=== PATIENT | female | born 1945 | race Caucasian/White ===

== ENCOUNTER 2023-08-31 08:45 | Outpatient (CLI) | payer MEDICARE, SELFPAY ==
[2023-08-31 15:01] LABS: Alanine Aminotransferase 20 U/L (6-35); Albumin Level 4.1 g/dL (3.5-5.1); Alkaline Phosphatase 59 U/L (38-126); Anion Gap 4 mmol/L (4-12); Aspartate Amino Transferase 45 U/L (14-36); Bilirubin,Total 0.6 mg/dL (0.2-1.3); Blood Urea Nitrogen 24 mg/dL (7-17); Calcium 9.6 mg/dL (8.4-10.2); Carbon Dioxide 30 mmol/L (22-30); Chloride 105 mmol/L (98-107); Cholesterol 165 mg/dL (0-200); Estimated Glomerular Filt Rate 54; Glucose 93 mg/dL (65-110); HDL Direct 51 mg/dL; Potassium 3.9 mmol/L (3.4-5.0); Sodium 139 mmol/L (137-145); Triglycerides 150 mg/dL (<150)
[2023-08-31 15:12] LABS: LDL Cholesterol Direct 86 mg/dL
== END 2023-08-31 08:46 | disposition home or self-care (01) ==
PROVIDERS: PCP Emergency Medicine; Visit Provider Emergency Medicine
DX: E78.5 Hyperlipidemia, unspecified (principal)
CPT/HCPCS: 36415; 80053; 80061

== ENCOUNTER 2024-02-14 11:45 | Outpatient (CLI) | payer MEDICARE, SELFPAY ==
--- NOTE | ~2024-02-14 | MM_ITS ---
EXAMINATION: MM screening sahara BI w oli HISTORY: Screening TECHNIQUE: Craniocaudal and mediolateral oblique 3-D tomosynthesis images were obtained and synthetic 2-D images were generated. CAD analysis was submitted and interpreted. COMPARISON: No prior mammogram is available for comparison at this institution. BREAST PARENCHYMAL COMPOSITION: Not dense: There are scattered areas of fibroglandular density. FINDINGS: There are asymmetries in the central aspect of the right breast on MLO view. There is no ma mmographic evidence for malignancy in the left breast. IMPRESSION: 1. Right breast asymmetries. 2. Additional mammographic views and possible breast ultrasound are recommended. BI-RADS Category 0: Incomplete: Needs additional imaging evaluation. Reviewed, dictated and finalized at location B. AIGN MANAGEMENT SENIOR MANAGER IMPRESSION: 1. Right breast asymmetries. 2. Additional mammographic views and possible breast ultrasound are recommended . BI-RADS Category 0: Incomplete: Needs additional imaging evaluation.
== END 2024-02-14 11:46 | disposition home or self-care (01) ==
PROVIDERS: PCP Family Medicine; Visit Provider Family Medicine
DX: Z12.31 Encounter for screening mammogram for malignant neoplasm of breast (principal); R92.8 Other abnormal and inconclusive findings on diagnostic imaging of breast
CPT/HCPCS: 77063; 77067

== ENCOUNTER 2024-03-09 08:23 | Emergency (ER) | payer MEDICARE, SELFPAY ==
[2024-03-09 09:05] VITALS: BP 142/80; PULSE 89; RESP 16; TEMP 36.6; O2SAT 98
[2024-03-09 09:21] LABS: EDCOVIDSCREEN Negative (Negative); EDINFLUASCREEN Negative (Negative); EDINFLUBSCREEN Negative (Negative)
--- NOTE | 2024-03-09 09:22 | ED.URI ---
HPI - URI/Sore Throat General Chief Complaint: Upper Respiratory Infection Stated Complaint: breathing prob, maeve, asthma Time Seen by Provider: 03/09/24 09:16 Source: patient and RN notes reviewed Mode of arrival: ambulatory Limitations: no limitations History of Present Illness HPI Narrative: Patient presents today with a 4 day history of chest congestion, cough, shortness of breath, left ear pain. History of asthma for which she uses control medication and rescue inhaler. She has also been using cough drops without relief. History of Meniere's disease and recent diagnosis of dystonia Related Data Home Medications ?Medication ?Instructions ?Recorded ?Confirmed ?Last Taken ?Type albuterol sulfate 2 mg/5 mL oral 2 mg PO TID 08/30/23 08/30/23 Unknown History syrup calcium carbonate (Alcalak) 168 mg PO TID 08/30/23 03/09/24 Unknown History fluticasone propionate 50 1 spray intranasal DAILY 08/30/23 03/09/24 Unknown History mcg/actuation nasal spray,suspension (Flonase Allergy Relief) omeprazole 20 mg capsule,delayed 20 mg PO DAILY 08/30/23 03/09/24 Unknown History release Allergies Allergy/AdvReac Type Severity Reaction Status Date / Time Penicillins Allergy Mild Rash Verified 03/09/24 11:48 Review of Systems Review of Systems: CONSTITUTIONAL: Denies body aches, fever, chills, or sweats. EYES: Denies visual changes, redness, or discharge. ENT: Denies rhinorrhea, congestion, sore throat.+ left ear pain CARDIOVASCULAR: Denies chest pain, palpitations, or edema. RESPIRATORY: + cough, shortness of breath, chest congestion GASTROINTESTINAL: Denies abdominal pain, nausea, vomiting, or diarrhea. GENITOURINARY: Denies dysuria or hematuria. SKIN: Denies rash, itching, or wounds. MUSCULOSKELETAL: Denies back pain, joint pain, or myalgia. NEUROLOGIC: Denies headache, numbness, tingling, or weakness. PSYCH: Denies depression or anxiety. [facility], LAT[facility] Past Medical History Medical History (Updated 03/09/24 @ 14:24 by Luc Muñoz PA-C) Asthma Family History Family History Mother Diabetes mellitus Father Heart disease Social History Social History Smoking status: Never smoker Alcohol intake: never Substance use: never Substance use type: does not use Lack of Transportation: No Current Housing: I Have Housing Concerned About Future Housing: No Difficulty Paying Gas/Electric Bills: No Difficulty Paying for Meds: No Currently Unemployed: No Education: Master's Degree or Higher Difficulty w/ Childcare or Family Care: No Living arrangements: with family Occupation/Education: other Gender identity (if verbalized by the patient): Female Sexual Orientation (if Verbalized by the Patient): Straight or Heterosexual Comments At time of signature, I have reviewed and agree with nursing past medical, surgical, social and family history unless otherwise noted. Please see nursing chart for further information. There is no relevant family history pertinent to the presenting complaint Exam Narrative: GENERAL: Mildly ill-appearing, well-nourished, and in no acute distress. HEAD: Normocephalic, atraumatic. EYES: EOMI. No redness or drainage. Conjunctivae normal. ENT: Mucous membranes pink and moist. Nares clear. No rhinorrhea. TMs normal bilaterally. Throat normal. Uvula midline. NECK: Normal AROM. Supple. No lymphadenopathy. CHEST: No respiratory distress. Clear to auscultation. Exhalation elicits severe coughing episodes. HEART: Regular rate and rhythm. No murmur appreciated. EXTREMITIES: Normal range of motion. No edema. SKIN: Warm, dry, no rash. Capillary refill normal. Normal skin turgor. NEURO: No focal deficits. Alert and oriented x3. Gait steady. PSYCH: Normal affect. No signs of depression or anxiety. Course Course Emergency Course: 944-Patient received Duoneb. In the middle of the treatment, patient was found by nurse having some tremors of the head and upper body and I was called to the bedside. Patient states that symptoms such as this may happen when her Meniere's disease is exacerbated. She requested 2 of her meclizine tablets from her purse and she laid down on the exam table to rest. When checked on approx 10 mins later, patient states she was feeling a bit better and her shortness of breath had improved. was called to picker feeder as patient declined to be transferred to the ED at this time. 1040- called into room by Patient is once again short of breath and having increased tremors. Patient states, ?I do not feel right. ? Patient is then placed on a monitor and oxygen via mask as she is primarily breathing out of her mouth. Instructed patient to slow down her breathing as she was hyperventilating. EMS was called and patient will be transferred to the ER for further evaluation and treatment. Vital signs have been stable during patient's visit Level of Care: Express Care Visit Vital Signs Vital signs: Vital Signs Temperature 98 F 03/09/24 09:05 Pulse Rate 89 03/09/24 09:05 Respiratory Rate 16 03/09/24 09:05 Blood Pressure 142/80 H 03/09/24 09:05 Pulse Oximetry 98 03/09/24 09:05 Temperature 98 F 03/09/24 09:05 Pulse Rate 89 03/09/24 10:34 Respiratory Rate 22 H 03/09/24 10:34 Blood Pressure 168/91 H 03/09/24 10:34 Pulse Oximetry 100 03/09/24 10:34 Reviewed Transfer Transfered to: [place] Transportation: ALS Transfer rationale: Body tremors, shortness of breath Accepting physician: Pb MDM - URI/Sore Throat MDM Narrative Medical decision making narrative: Patient's condition has worsened from arrival to now include full body tremors and increased shortness of breath. Her shortness of breath had improved initially after the DuoNeb, but now has worsened. Initially, in preparation for discharge, rx for prednisone was sent to pharmacy for her cough/asthma exacerbation. Differential Diagnosis Differential diagnosis: Likely upper respiratory infection, sinusitis, viral infection, bronchitis and other (Asthma exacerbation, pneumonia) Lab Data Attestation: I reviewed the patient's lab results. Labs: Lab Results 03/09/24 Range/Units 09:00 POC Influenza A Ag Negative (Negative) POC Influenza B Ag Negative (Negative) POC SARS CoV-2 Ag Negative (Negative) Critical Care Time Critical Care Time Critical Care Time: No Discharge Plan Discharge Clinical Impression: Shortness of breath, Tremor Patient Disposition: Acute Care Hospital Condition: Stable Patient Language: Moroccan Prescriptions: New prednisone 20 mg tablet 40 mg PO DAILY 5 Days Qty: 10 0RF No Action omeprazole 20 mg capsule,delayed release(DR/EC) 20 mg PO DAILY Alcalak 168 mg calcium (420 mg) tablet,chewable 168 mg PO TID fluticasone propionate [Flonase Allergy Relief] 50 mcg/actuation spray,suspension 1 spray intranasal DAILY Rx Instructions: administer into each nostril albuterol sulfate 2 mg/5 mL syrup 2 mg PO TID albuterol sulfate [Ventolin HFA] 90 mcg/actuation HFA aerosol inhaler 1 puff inhalation Q4H PRN (Reason: shortness of breath or wheezing) Qty: 8.5 1RF montelukast 10 mg tablet 10 mg PO DAILY Qty: 90 1RF rosuvastatin 20 mg tablet 20 mg PO DAILY Qty: 90 1RF budesonide-formoterol [Breyna] 160-4.5 mcg/actuation HFA aerosol inhaler 2 inh inhalation BID Qty: 10.2 3RF Follow-up/Referrals: Mojgan Prather DO [Primary Care Provider] - Time of Disposition: 10:43
[2024-03-09] MEDS: IPRATROPIUM BR 0.02% INH SOLN 0.5 MG/2.5 ML VIAL INHALATION (09:33)
[2024-03-09] MEDS: ALBUTEROL SULFATE NEB 2.5 MG/3 ML INH INHALATION (09:33)
[2024-03-09 09:54] VITALS: BP 165/99; PULSE 94; RESP 22; O2SAT 99
[2024-03-09 10:34] VITALS: BP 168/91; PULSE 89; RESP 22; O2SAT 100
--- NOTE | 2024-03-09 10:59 | PC.NURSE ---
1000 patient was taking breathing treatment as ordered but sitting in chair with shaking movement and holding nebulizer in hand. Patient is awake and alert to verbal stimuli; reports she feels lightheaded and some difficulty breathing.
--- NOTE | 2024-03-09 19:19 | PC.NURSE ---
0924 Patient was taking breathing treatment as ordered while sitting in chair; noted to be shaking and holding nebulizer in hand; patient responds appropriately to verbal stimuli. Patient states she was shaking and related to her meinere's; patient wanted to take her meclizine that she had in purse. Provider at bedside and meclizine taken under provider's guidance.
--- NOTE | 2024-03-09 19:22 | PC.NURSE ---
1000 bp 147/80 HR 80 with SpO2 @ 100%. Patient assisted to supine position on exam table. Remains alert and less shaking while talking with staff.
--- NOTE | 2024-03-09 19:23 | PC.NURSE ---
1015 checked on patient-she remains in supine position but increase in shaking and patient reports difficulty in breathing. Respirations 22/minute, SpO2 100% on room air with BP 160/102. Provider called to bedside.
--- NOTE | 2024-03-09 19:25 | PC.NURSE ---
1017 granite setter applied with NSR. EMS called.
--- NOTE | 2024-03-09 19:25 | PC.NURSE ---
1025 NSR by mysql dba; O2 applied 15L via NRB-patient is awake, continued shaking.
== END 2024-03-09 10:40 | disposition short-term general hospital (02) ==
PROVIDERS: Emergency Provider Nurse Practitioner; PCP Family Medicine
DX: R06.02 Shortness of breath (principal); R25.1 Tremor, unspecified; Z20.822 Contact with and (suspected) exposure to COVID-19; J45.909 Unspecified asthma, uncomplicated
CPT/HCPCS: 87426; 87804; 94640; 99215; G0463

== ENCOUNTER 2024-03-09 11:02 | Emergency (ER) | payer MEDICARE, SELFPAY ==
[2024-03-09 11:45] VITALS: BP 140/107; PULSE 91; RESP 20; TEMP 36.8; O2SAT 98
--- NOTE | 2024-03-09 13:52 | PC.NURSE ---
Patient denies any symptoms at this time. patient states she felt jumpy and had tremors after getting an albuterol treatment, but symptoms have since resolved
[2024-03-09 13:53] VITALS: RESP 18; O2SAT 100
[2024-03-09 13:54] VITALS: BP 122/57; PULSE 83; RESP 18; O2SAT 100
--- NOTE | 2024-03-09 14:17 | ED_ITS ---
HPI - General Adult General Chief complaint: Unspecified Stated complaint: dyspnea Time Seen by Provider: 03/09/24 14:01 Source: patient Mode of arrival: ambulatory Limitations: no limitations History of Present Illness HPI narrative: This is a 78 yo F with PMHx of dystonia, asthma who presents from urgent care after having dystonic reaction. She was given albuterol breathing treatment at the urgent care today for asthma exacerbation, and was referred over due to dystonic reaction ongoing for greater than 30 minutes. Patient states that she feels better on arrival to our ED after she was given 2 doses of Benadryl via EMS. She states that the albuterol helped with her breathing and wheezing as well. She has no current complaints and would like to be discharged home. Related Data Home Medications ?Medication ?Instructions ?Recorded ?Confirmed ?Last Taken ?Type albuterol sulfate 2 mg/5 mL oral 2 mg PO TID 08/30/23 08/30/23 Unknown History syrup calcium carbonate (Alcalak) 168 mg PO TID 08/30/23 03/09/24 Unknown History fluticasone propionate 50 1 spray intranasal DAILY 08/30/23 03/09/24 Unknown History mcg/actuation nasal spray,suspension (Flonase Allergy Relief) omeprazole 20 mg capsule,delayed 20 mg PO DAILY 08/30/23 03/09/24 Unknown History release Allergies Allergy/AdvReac Type Severity Reaction Status Date / Time Penicillins Allergy Mild Rash Verified 03/09/24 11:48 Review of Systems Review of Systems: All systems as dictated in [facility] Past Medical History Medical History (Updated 03/09/24 @ 14:24 by Luc Muñoz PA-C) Asthma Family History Family History Mother Diabetes mellitus Father Heart disease Social History Social History Smoking status: Never smoker Alcohol intake: never Substance use: never Substance use type: does not use Lack of Transportation: No Current Housing: I Have Housing Concerned About Future Housing: No Difficulty Paying Gas/Electric Bills: No Difficulty Paying for Meds: No Currently Unemployed: No Education: Master's Degree or Higher Difficulty w/ Childcare or Family Care: No Living arrangements: with family Occupation/Education: other Gender identity (if verbalized by the patient): Female Sexual Orientation (if Verbalized by the Patient): Straight or Heterosexual Exam Narrative: GENERAL: Well-appearing, well-nourished, and in no acute distress. HEAD: Normocephalic, atraumatic. EYES: PERRLA and EOMI. ENT: Nares clear, no rhinorrhea or epistaxis. Mucous membranes moist. Oropharynx without tonsillar hypertrophy exudate or other lesions. NECK: Supple. No adenopathy or masses. CHEST: No respiratory distress. Clear to auscultation. No wheezes rales or rhonchi HEART: Regular rate and rhythm. No murmur heard. Normal peripheral pulses. ABDOMEN: Soft, nontender, nondistended, normal active bowel sounds. MSK: Normal range of motion. No edema. SKIN: Warm, dry, no rash. NEURO: Alert and oriented x4. No focal deficits. PSYCH: Normal mood and affect. Course Vital Signs Vital signs: Vital Signs Temperature 98.2 F 03/09/24 11:45 Pulse Rate 91 03/09/24 11:45 Respiratory Rate 20 03/09/24 11:45 Blood Pressure 140/107 H 03/09/24 11:45 Pulse Oximetry 98 03/09/24 11:45 Temperature 98.2 F 03/09/24 11:45 Pulse Rate 83 03/09/24 13:54 Respiratory Rate 18 03/09/24 13:54 Blood Pressure 122/57 L 03/09/24 13:54 Pulse Oximetry 100 03/09/24 13:54 Oxygen Delivery Room Air 03/09/24 13:53 Medical Decision Making MDM Narrative Medical decision making narrative: This is a 78-year-old female who presents to the ED for dystonic reaction that occurred urgent care today. Vitals on arrival are normal. Patient has no complaints on my initial exam. Physical exam is benign. Mild dystonic movements noted with shaking of the head. Shared decision making with patient regarding further evaluation. She feels fine on arrival here after receiving Benadryl via EMS for the dystonic reaction. She feels much improved after having albuterol for her breathing. She has a prescription for prednisone at the pharmacy from Urgent Care. She would like to be discharged at this point without any further testing or evaluation. I feel this is very reasonable. Patient will be discharged in stable condition. Supportive measures discussed and return precautions given. Patient is understanding and agreeable with plan for discharge with PCP follow-up. Vital Signs Vital Signs: Vital Signs Temperature 98.2 F 03/09/24 11:45 Pulse Rate 91 03/09/24 11:45 Respiratory Rate 20 03/09/24 11:45 Blood Pressure 140/107 H 03/09/24 11:45 Pulse Oximetry 98 03/09/24 11:45 Temperature 98.2 F 03/09/24 11:45 Pulse Rate 83 03/09/24 13:54 Respiratory Rate 18 03/09/24 13:54 Blood Pressure 122/57 L 03/09/24 13:54 Pulse Oximetry 100 03/09/24 13:54 Oxygen Delivery Room Air 03/09/24 13:53 Discharge Plan Discharge Clinical Impression: Asthma, Dystonic drug reaction Patient Disposition: Home, Self-Care Condition: Stable Instructions: Antibiotic Form Additional Instructions: Your exam today is reassuring. Please follow-up with PCP on this issue. Take medications as previously prescribed by urgent care for. If you have any new or worsening symptoms please return to the ER for further evaluation. Patient Language: [place] Islander Prescriptions: No Action prednisone 20 mg tablet 40 mg PO DAILY 5 Days Qty: 10 0RF omeprazole 20 mg capsule,delayed release(DR/EC) 20 mg PO DAILY Alcalak 168 mg calcium (420 mg) tablet,chewable 168 mg PO TID fluticasone propionate [Flonase Allergy Relief] 50 mcg/actuation spray,suspension 1 spray intranasal DAILY Rx Instructions: administer into each nostril albuterol sulfate 2 mg/5 mL syrup 2 mg PO TID albuterol sulfate [Ventolin HFA] 90 mcg/actuation HFA aerosol inhaler 1 puff inhalation Q4H PRN (Reason: shortness of breath or wheezing) Qty: 8.5 1RF montelukast 10 mg tablet 10 mg PO DAILY Qty: 90 1RF rosuvastatin 20 mg tablet 20 mg PO DAILY Qty: 90 1RF budesonide-formoterol [Breyna] 160-4.5 mcg/actuation HFA aerosol inhaler 2 inh inhalation BID Qty: 10.2 3RF Follow-up/Referrals: Mojgan Prather DO [Primary Care Provider] - Time of Disposition: 14:24
--- OUTSIDE RECORDS SUMMARY | 2024-03-16 15:06 | XMS_ITS | Referral Summary ---
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 (Primary Dx) from Last 3 Months Allergies Active Allergy Reactions Criticality Noted Date Comments Penicillin G Rash Medium 07/20/2020 Medications calcium carbonate-vitam in D3 1,250 mg (500 mg elemental)-600 unit tablet every 12 (twelve) hours Active Ventolin HFA 90 mcg/actuation inhaler INHALE 1 PUFF BY MOUTH EVERY 4 HOURS NEEDED for 33 Active Breyna 160-4.5 mcg/actuation inhaler Inhale 2 puffs 2 (two) times a day 4 Active fluticasone propionate (Flonase Allergy Relief) 50 mcg/actuation nasal spray daily Active meclizine (ANTIVERT) 25 mg tablet TAKE 1 TABLET BY MOUTH THREE TIMES DAILY NEEDED FOR DIZZINESS FOR 3 DAYS 0 Active montelukast (SINGULAIR) 10 mg tablet daily Active omeprazole 20 mg tablet,delayed release (DR/EC) every 12 (twelve) hours Active rosuvastatin (CRESTOR) 20 mg tablet Take 1 tablet (20 mg total) by mouth daily Active multivitamin with iron tablet Take 1 tablet by mouth daily Active triamterene-hyd roCHLOROthiazid e 37.5-25 mg per tablet/capsule Take 1 tablet/capsul e by mouth daily 30 tablet/capsu le 11 4 10/16/19 25 Active betahistine Take 1 capsule (8 mg total) by mouth 2 (two) times a day Active acetaminophen (TYLENOL) 325 mg tablet every 4 (four) hours 02/19/20 24 Discontinu ed(Therapy completed) carbidopa-levod opa (SINEMET) 25-100 mg per tabletIndicatio ns:Parkinsonism Take 0.5 tablets by mouth 3 (three) times a day for 14 days, THEN 1 tablet 3 (three) times a day for 14 days, THEN 1.5 tablets 3 (three) times a day for 14 days, THEN 2 tablets 3 (three) times a day for 14 days, THEN 2.5 tablets 3 (three) times a day for 14 days, THEN 3 tablets 3 (three) times a day. 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 She was doing well overall. She continued to have head bobbing and slight neck pain with stress. She worked hard to manage her stress and felt she was doing well. She referred to the movement and pain as mild . The head bobbing did not wake her at night. She tried levodopa and could not tell if it helped, but she had intolerable nausea and GI upset. We discussed trying other medications or botox if Dr. Marte deem appropriate for her if needed. Recommendations Continue to monitor movement and if it becomes bothersome, please let us know Keep rov with Dr. Marte in September and sooner if needed Assessment & Plan (10/18/2023 1:52 PM CDT): Images from the original note were not included. Shawn Duran is a 78 y.o. 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 We discussed that she had some mild parkinsonism but I did not think she had Parkinson disease. In either case levodopa is the first line medication. We could consider an anticholinergic but we were worried about cognitive side effects. For the tremor a beta glen may work, but she had asthma and this may complicate it. If we wanted to do intermittent therapy a low dose benzodiazepine could be tried. Marry Marte MD Meniere's disease of left ear 10/16/2023 Asymmetrical sensorineural hearing loss 10/16/19 24 Social History Tobacco Use Types Packs/Day Years Used Date Smoking Tobacco: Never Smokeless Tobacco: Never Tobacco Cessation:Counseling Given: Not Answered AUDIT-C Answer Date Recorded Q1: How often do you have a drink containing alc ohol? Never 10/16/2023 Average Number of Drinks Not on file 024 Frequency of Binge Drinking Not on file 07/2023 Comments Unknown Sex and Gender Information Value Date Recorded Sex Assigned at Not on file Legal Sex Female 11:46 AM BUMP GRADER OPERATOR Gender Identity Not on file Sexual Orientation Not on file Last Filed Vital Signs Vital Sign Reading Time Taken Comments Blood Pressure 135/80 02/19/2024 10:11 AM BUMP GRADER OPERATOR Pulse 97 02/19/2024 10:11 AM BUMP GRADER OPERATOR Temperature - - Respiratory Rate - - Oxygen Saturation - - Inhaled Oxygen Concentration - - Weight 68.7 kg (151 lb 6.4 oz) 02/19/2024 10:11 AM BUMP GRADER OPERATOR Height 149.9 cm (4' 11 ) 02/19/2024 10:11 AM BUMP GRADER OPERATOR Body Mass Index 30.58 02/19/2024 10:11 AM BUMP GRADER OPERATOR Plan of Treatment Not on file Insurance MEDICARE [place] MEDICARE [place] MEDICARE Care Teams Door Glass Installer Relationship Specialty Start Date End Date Mojgan Prather DO [address] [place] [address] [address] [place] [address] PCP - General Family Medicine 02/19/24
--- OUTSIDE RECORDS SUMMARY | 2024-03-16 15:06 | XMS_ITS | Encounter Summary ---
Author Organization [facility] Address [address] [facility] [address] [place] [address] Phone Care Team Providers Care Car Park Attendant Name Role Phone Luiz Kilgore MD Primary Care Provider [phone] Encounter Details Date Type Department Care Team (Late st Contact Info) Description 11/01/2023 Telephone [facility] Movement Disorders [address] [place] [phone] Janice Sun, RN Social History Tobacco Use Types Packs/Day Years Used Date Smoking Tobacco: Never Smokeless Tobacco: Never AUDIT-C Answer Date Recorded Q1: How often do you have a drink containing alc ohol? 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 Let us know if you have any concerns. Take Janice Manning, RN Movement Disorders Department of Neurology ----- Message ----- From:Shawn Duran Sent:11/01/2023 11:08 AM CDT To:Patient Medical Advice Request Message List Subject:Dosage of carb/levo as prescribed by Dr. Marte on 10/17 Thank you for your prompt reply. I???m hoping my stomach will settle down as I adjust--so I don???twant any additional meds yet. I will increase the dosage as prescribed this time and will keep you informed. If I need help for nausea and stomach issues I will inform you. Thanks again!! I really appreciate your response!!! * Telephone Encounter - Janice Sun RN - 11/01/2023 10:52 AM CDT Reply: Good morning, Thank you for the update and I shared this with Dr. Marte. We hope you will appreciate benefit as the dose is increased, so it is ok that you have not yet noticed change in your symptoms. Are you taking the carbidopa/levodopa with a full stomach? Nausea is common with this because of the levodopa. If you are still having nausea while taking it on a full stomach, then we can add additional carbidopa, or something else ot treat the nausea. The levodopa also lowers BP a bit, so be sure to monitor this as well. Headaches are not common with levodopa, but change in BP could be a contributor. Take Care, Janice IVEY, RN Movement Disorders Department of Neurology ----- Message ----- From:Shawn Duran Sent:11/01/2023 9:22 AM CDT To:Sharon Ansari NP Subject:Dosage of carb/levo as prescribed by Dr. Marte on 10/17 Shall I increase to 1 full tablet for next 2 weeks? After 2 weeks of half tablet, head movement (dystonia) continues. Have experienced some nausea, mild headache. Just confirming need to increase dosage as indicated on prescription. Thank you. Shawn Duran, 49. documented in this encounter Plan of Treatment Not on file documented as of this encounter Visit Diagnoses Not on filedocumented in this encounter Care Teams Car Park Attendant Relationship Specialty Start Date End Date Luiz Kilgore MD [address] [place] [address] [address] [place] [id number] PCP - General Family Medicine 04/20/23 02/18/24 documented as of this encounter
--- OUTSIDE RECORDS SUMMARY | 2024-03-16 15:06 | XMS_ITS | Encounter Summary ---
Author Organization [facility] Address [address] [place] [address] Phone Care Team Providers Care Insurance Claim Auditor Name Role Phone Luiz Kilgore MD Primary Care Provider [phone] Reason for Visit * Reason Comments Vertigo Meniere's Disease Encounter Details Date Type Department Care Team (Latest Contact Info) Description 10/16/2023 9:00 AM CDT Office Visit [facility] ([facility]) - [facility] ENT [address] [facility] 11th [place] [address] [place] [address] Afshin Castillo MD [address] [place], [place] [id number] Asymmetrical sensorineural hearing loss (Primary Dx); Meniere's disease of left ear Social History Tobacco Use Types Packs/Day Years [...] on file 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 Gender Identity Not on file Sexual Orientation Not on file documented as of this encounter Last Filed Vital Signs Vital Sign Reading Time Taken Comments Blood Pressure 132/78 10/16/2023 8:42 AM CDT Pulse - - Temperature - - Respiratory Rate - - Oxygen Saturation - - Inhaled Oxygen Concentration - - Weight 70.4 kg (155 lb 3.2 oz) 10/16/2023 8:42 A M CDT Height 149.9 cm (4' 11 ) 10/16/2023 8:42 AM CDT Body Mass Index 31.35 10/16/2023 8:42 AM CDT documented in this encounter Ordered Prescriptions Prescription Sig Dispense Quantity Refills Last Filled Start Date End Date triamterene-hydroC HLOROthiazide 37.5-25 mg per tablet/capsule Take 1 tablet/capsul e by mouth daily 30 tablet/capsule 11 10/16/2023 5 betahistine Take 1 capsule (8 mg total) by mouth 3 (three) times a day 90 capsule 11 10/16/2023 4 documented in this encounter Progress Notes * Afshin Castillo MD - 10/16/2023 9:00 AM CDT Images from the original note were not included. Referring Provider: Luiz Kilgore MD Primary Care Physician: Luiz Kilgore MD Chief Complaint: vertigo/dizziness HPI: This is a 78 y.o. female with a PMH of cervical dystonia who presents today for evaluation of a past diagnosis of Meniere's disease. The patient has had symptoms of dizziness for 8 years and comes to us to re- establish care after moving from [place]. Her out of state ENT diagnosed with her with Meniere's disease (after an extensive workup and multiple physicians) and she is on Triamterene daily and abortive Meclizine.) Her symptoms consists of left ear ringing, fulness, with occasional internal vertigo and rare LOC. Her past testing includes L>R hearing loss. She reports chronic imbalance on the left and has to be carefulwith stairs. She reports ringing in her left ear. Mild episodes -Description: Left ear fullness, followed by ear left ear ringing, and imbalance ( my head is wanting to go back ), nausea and subjective dizziness. Responds to abortive Meclizine. -Duration: 1-2 minutes with Meclizine, 10 minutes. -Frequency: Once 1-2 weeks (when she's having them). -Last episode: several months ago. Severe episodes -Description: Starts same as mild episodes: 1. Has the sensation that her head is spinning followedby , subjective feeling that her eyes are spinning. Severe nausea, loss of bowel control with diarrhea. -Duration: 3-4 days -Has only occurred once. -Last episode: 3 years. Other episodes -Description: Sudden LOC, or fall without warning -Has only ever had 2 episodes. -Last episode: 1 year Triggers: Loud sounds, stress and fatigue.Flying can trigger episodes. Pertinent negative ROS: No headaches or migraines, no motion sickness, episodes are not triggered by positional changes. She is seen by Dr. Marte with movement disorders for cervical dystonia treated with carbidopa/levodopa. SH: Moved to [place] to be with son Past Medical/Surgical History Past Medical History: Diagnosis Date Asthma High cholesterol Past Surgical History: Procedure Laterality Date CHOLECYSTECTOMY HYSTERECTOMY LEG SURGERY PMH: GERD, Asthma. Past Family/Social History Family History Problem Relation Age of Onset Diabetes Mother Heart disease Father No Known Problems Sister Heart disease Brother Tremor Neg Hx Parkinsonism Neg Hx Social History Tobacco Use Smoking status: Never Smokeless tobacco: Never Substance and Sexual Activity Drug use: Never Sexual activity: None Alcohol Use: Not At Risk (10/16/2023) AUDIT-C Frequency of Alcohol Consumption: Never Average Number of Drinks: Not on file Frequency of Binge Drinking: Not on file Medications/Allergies/Immunizations Current Outpatient Medications Medication Sig Dispense Refill acetaminophen (TYLENOL) 325 mg tablet every 4 (four) hours Breyna 160-4.5 mcg/actuation inhaler Inhale 2 puffs 2 (two) times a day fluticasone propionate (Flonase Allergy Relief) 50 mcg/actuation nasal spray daily meclizine (ANTIVERT) 25 mg tablet TAKE 1 TABLET BY MOUTH THREE TIMES DAILY NEEDED FOR DIZZINESS FOR 3 DAYS montelukast (SINGULAIR) 10 mg tablet daily multivitamin with iron tablet Take 1 tablet by mouth daily omeprazole 20 mg tablet,delayed release (DR/EC) every 12 (twelve) hours rosuvastatin (CRESTOR) 20 mg tablet Take 1 tablet (20 mg total) by mouth daily Ventolin HFA 90 mcg/actuation inhaler INHALE 1 PUFF BY MOUTH EVERY 4 HOURS NEEDED for 33 calcium carbonate-vitamin D3 1,250 mg (500 mg elemental)-600 unit tablet every 12 (twelve) hours carbidopa-levodopa (SINEMET) 25-100 mg per tablet Take 0.5 tablets by mouth 3 (three) [...] (three) times a day. 1125 tablet 2 triamterene-hydroCHLOROthiazide 37.5-25 mg per tablet/capsule Take 1 tablet/capsule by mouth daily 30 tablet/capsule 11 No current facility-administered medications for this visit. Allergies: Penicillin g, Immunizations: There is no immunization history on file for this patient. Review of Systems Review of Systems: Pertinent positives in HPI. Intake sheet reviewed covering a full 10-systems review of systems. Physical Exam Vital Signs: BP 132/78 Ht 149.9 cm (4' 11 ) Wt 70.4 kg (155 lb 3.2 oz) BMI 31.35 kg/m?? GENERAL: Pleasant female, sitting up in NAD, normal appearance and voice. RESPIRATION: Breathing comfortably, no stridor. CV: No clubbing/cyanosis/edema in hands, RRR. HEAD AND FACE: General Inspection reveals no lesions or masses. HEENT: EARS: If the otoscope was inadequate, the otology microscope was used for improved visualization for diagnostic purposes. Microscopic visualization was used for clear magnified visualization and three-dimensional imaging of the ear for detection of any observable pathology or pathologic anatomic configuration and charaterization of the same. Right External auditory canal: normal Tympanic Membrane: normal Middle ear: normal Left: External auditory canal: normal Tympanic Membrane: normal Middle ear: normal EYES: EOM Intact, sclera anicteric, no conjunctival injection. NOSE: External inspection of nose reveals no lesions, no masses. Inspection of nasal mucosa, septum, and turbinates is normal to anterior rhinoscopy. ORAL CAVITY/OROPHARYNX: Lips and gums are normal. Oropharynx, including the mucosa of oral cavity, hard and soft palates, tongue, and posterior pharyngeal wall showed normal symmetry without lesion and normal hydration of mucosal surfaces. NECK: Normal symmetry and overall appearance as well as tracheal position; no masses. Thyroid gland shows no tenderness or masses. NEURO: A&Ox3, Cranial nerves 2-12 intact and symmetric. Normal affect. Oculomotor Examination: Primary gaze alignment: normal Extraocular movements: full and conjugate Smooth Pursuit: normal Vergence Testing: Intact Test of Skew Deviation: Normal Vestibular Testing: No spontaneous or gaze evoked nystagmus Vestibulo-ocular Reflex (VOR): Head thrust test: No deviation of the eyes with quick 30 degree thrusts of head to midline. Cerebellar/Postural: Eiyuys-qbwg-jcapyu: Normal. Romberg: eyes open - normal. eyes closed - normal. Gait: normal Tandem Gait: deferred Provocative Testing: Hennebert: Negative Hallpike Maneuver: Hallpike Positions: No nystagmus to right or left. Diagnostic/Laboratory/Imaging Studies Reviewed: Audiometric evaluation reviewed and consistent with bilateral SNHL with some asymmetry. Imaging Outside imaging unavailable for review. ASSESSMENT/PLAN 78 y.o. female presents to clinic with clinical evaluation consistent with Meniere's Disease. Meniere's disease characterized by episodic inner ear dysfunction with patient is reporting spontaneous episodic vertigo lasting hours with associated tinnitus, hearing loss, or ear fullness. The time course of the condition can be difficult to predict with period of remission and recurrence. We discussed the benefit of meclizine and benzodiazepines only in the acute setting of vertigo and prolonged use of these medications actually result in poor vestibular compensation, cognitive delay, or even dependence. We also discussed that initial therapy therapy includes salt restriction, adequate hydration, caffeine avoidance, and avoidance of dietary triggers if they are known. Following dietary modifications, initial medical therapy includes Dyazide diuretic and steroid therapy to break recurrent attacks. Will continue Dyazide which she has been on with some benefit and consider trial of Betahistine with plan to re-evaluat in 5 months or sooner if there is symptom progression. The note in its entirety has been confirmed by me, the attending physician. Parts of the note were initially recorded by my staff. I have seen and examined the patient, and was present for the entireservice. I agree with the findings and plan of care as initially documented in the resident's/fellow's note and edited by me. Afshin Castillo M.D. Probate Judge Director, [facility] Otology and Neurotology Department of Otolaryngology [facility] [email or web address] [email or web address] Office: Clinic: This note was created in part with the assistance of Riidr voice recognition software. International Sales Manager variances may occur. documented in this encounter Plan of Treatment Not on file documented as of this encounter Visit Diagnoses Diagnosis Asymmetrical sensorineural hearing loss- Primary Sensorineural hearing loss, asymmetrical Meniere's disease of left ear documented in this encounter Historical Medications * This list may reflect changes made after this encounter. multivitamin with iron tablet Take 1 tablet by mouth daily rosuvastatin (CRESTOR) 20 mg tablet Take 1 tablet (20 mg total) by mouth daily omeprazole 20 mg tablet,delayed release (DR/EC) every 12 (twelve) hours montelukast (SINGULAIR) 10 mg tablet daily meclizine (ANTIVERT) 25 mg tablet TAKE 1 TABLET BY MOUTH THREE TIMES DAILY NEEDED FOR DIZZINESS FOR 3 DAYS 10/08/2019 fluticasone propionate (Flonase Allergy Relief) 50 mcg/actuation nasal spray daily Breyna 160-4.5 mcg/actuation inhaler Inhale 2 puffs 2 (two) times a day 07/29/2023 Ventolin HFA 90 mcg/actuation inhaler INHALE 1 PUFF BY MOUTH EVERY 4 HOURS NEEDED for 33 calcium carbonate-vitami n D3 1,250 mg (500 mg elemental)-600 unit tablet every 12 (twelve) hours fluticasone propion-salmeter oL (ADVAIR DISKUS) 250-50 mcg/dose diskus inhaler 04/01/2020 4 dexAMETHasone (DECADRON) 6 mg tablet 10/08/2019 4 calcium carbonate (OS-KANU) 1,500 mg (600 mg elemental) tablet every 12 hours 4 acetaminophen (TYLENOL) 325 mg tablet every 4 (four) hours 4 ascorbic acid 500 mg tablet,chewable daily 4 added in this encounter Care Teams Insurance Claim Auditor Relationship Specialty Start Date End Date Luiz Kilgore MD [address] [facility] [address] [address] PCP - General Family Medicine 04/20/23 02/18/24 documented as of this encounter
--- OUTSIDE RECORDS SUMMARY | 2024-03-16 15:06 | XMS_ITS | Encounter Summary ---
Author Organization [facility] Address [address] [place] [address] Phone Care Team Providers Care Managing Manager Name Role Phone Luiz Kilgore MD Primary Care Provider [phone] Encounter Details Date Type Department Care Team (Late st Contact Info) Description 08/16/2023 Telephone [facility] Otol[facility] Medicine 11th [place] [address] [place] [phone] Jana Austin Au.D. 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 - 08/16/2023 10:03 AM CDT Triage call for 10/[address] Castillo. Who Have you previously seen for this problem? Dx with meniere's in [place] by ENT, had 1 episode of LOC, went to PT for balance which helped for a while. Also had signal fitter for LOC (told it was potassium level) What tests/treatments have you had? Hearing Test L>R hearing loss When did your symptoms begin? 14 years ago. Takes Triamterene daily. Uses meclizine as an abortive for the dizziness. 4. Do you experience any of the following? Spinning: Yes Duration: Hours for severe episodes How offten does symptom occur? Last severe episode was 3 years ago. Mild episodes are about monthly. Episodes are exacerbated stress and fatigue. Flying can also trigger an episode. Imbalance: Yes Duration: episodic left side does not respond as quickly as the right side. Has to be careful junaid. On stairs. How offten does symptom occur? Light Headedness: No Duration: N/A (does not apply) How offten does symptom occur? 5. Do you have any symptoms in your ears with this? Ringing and Ear fullness in left ear. 6. Are your symptoms triggered by specific movements A. Bending over? No B. Looking up? No C. Rolling over? No D. Standing up? No 7. Are you light or sound sensitive with symptoms? Very loud sounds will trigger A. Do you have migraines? No B. When was your last migraine? N/A 8. Do you experience nausea when sitting in the back seat of car? No 9. While the car is in motion, do you experience nausea while reading or scrolling through your phone? No Spinning, nausea, fullness/tinnitus (left ear) did have hearing fluctuations with episodes but cannot tell now as hearing is too poor in that ear. Just moved to the area and wanting to establish with new physician familiar with Meniere's Disease.Has annual hearing test. About time for next one. No testing ordered. documented in this encounter Plan of Treatment Not on file documented as of this encounter Visit Diagnoses Not on filedocumented in this encounter Care Teams Managing Manager Relationship Specialty Start Date End Date Luiz Kilgore MD [facility] [address] [place] [id number] PCP - General Family Medicine 04/20/23 02/18/24 documented as of this encounter
--- OUTSIDE RECORDS SUMMARY | 2024-03-16 15:06 | XMS_ITS | Encounter Summary ---
Author Organization 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 - 10/16/2023 8:40 AM CDT Images from the original note were not included. Procedures PATIENT: Shawn Duran : 1945 TYPE OF SERVICE: Audiologic Evaluation DATE OF SERVICE: 10/16/2023 Referral Source: Afshin Castillo MD Audiogram completed per physician referral. See scanned audiogram for results. Detailed medical history was obtained by medical representative and reviewed - see notes on audiogram for brief history. Results were reviewed with the patient by cigarette machine operator and/or physician. Tests performed: basic comprehensive audiometry and tympanometry documented in this encounter Plan of Treatment Not on file documented as of this encounter Procedures Procedure Name Priority Date/Time Associated Diagnosis Comments AUDBASE RESULTS 10/16/2023 7:53 AM CDT documented in this encounter Results * AudBase Results (10/16/2023 7:53 AM CDT) Provider Scanning AUDIOLOGY SERVICES ORDERABLES Final Result documented in this encounter Visit Diagnoses Diagnosis Sensorineural hearing loss, asymmetrical- Primary documented in this encounter Care Teams Dental Assistant Medical Assistant Relationship Specialty Start Date End Date Luiz Kilgore MD [address] [facility] [address] [address] PCP - General Family Medicine 04/20/23 02/18/24 documented as of this encounter
--- OUTSIDE RECORDS SUMMARY | 2024-03-16 15:06 | XMS_ITS | Encounter Summary ---
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 Marte. It is fine to stay on carbidopa/levodopa 1 tab 3 x day. If anything changes, please let us know. Take Janice Manning, RN Movement Disorders Department of Neurology ----- Message ----- From:Shawn Duran Sent:11/16/2023 9:27 AM CDT To:Sharon Ansari NP Subject:Dosage of carbides-levidopa Shawn Duran-[place], [place] Being treated for dystonia. Personal goal in treatment is to get a diagnosis, then keep this monitored to ensure it stays at the mild level. Is not greatly impacting life functions. Was diagnosed on 10-18-23. Began medication on increasing amounts biweekly. Now taking 1 pill 3 times daily. Symptoms have somewhat. Stomach problems are not significant. Therefore I am reluctant to continue to increase the dosage and am considering just continuing thismedication at level of 1 pill 3 times a day. Is this acceptable? [phone] documented in this encounter Plan of Treatment Not on file documented as of this encounter Visit Diagnoses Not on filedocumented in this encounter Care Teams Barrel Cap Setter Relationship Specialty Start Date End Date Luiz Kilgore MD [facility] [address] [address] PCP - General Family Medicine 04/20/23 02/18/24 documented as of this encounter
--- OUTSIDE RECORDS SUMMARY | 2024-03-16 15:06 | XMS_ITS | Encounter Summary ---
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 Encounter Details Date Type Department Care Team (Late st Contact Info) Description 02/19/2024 10:30 AM SUPERVISORY CBP OFFICER Office Visit [facility] [address] [place] [phone] Sharon Ansari NP [address] [facility] [address] [place] [address] 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 (Primary Dx) Social History Tobacco Use Types [...] on file Legal Sex Female 11:46 AM SUPERVISORY CBP OFFICER Gender Identity Not on file Sexual Orientation Not on file documented as of this encounter Last Filed Vital Signs Vital Sign Reading Time Taken Comments Blood Pressure 135/80 02/19/2024 10:11 AM SUPERVISORY CBP OFFICER Pulse 97 02/19/2024 10:11 AM SUPERVISORY CBP OFFICER Temperature - - Respiratory Rate - - Oxygen Saturation - - Inhaled Oxygen Concentration - - Weight 68.7 kg (151 lb 6.4 oz) 02/19/2024 10:11 AM SUPERVISORY CBP OFFICER Height 149.9 cm (4' 11 ) 02/19/2024 10:11 AM SUPERVISORY CBP OFFICER Body Mass Index 30.58 02/19/2024 10:11 AM SUPERVISORY CBP OFFICER documented in this encounter Progress Notes * Sharon Ansari NP - 02/19/2024 10:30 AM [facility] Office Visit Patient: Shawn Duran Referred by: Mojgan Prather DO : 1945 Visit Date: 02/19/2024 Clinician: Sharon Ansari NP Chief Complaint Shawn Duran is a 78 y.o. 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 Her PMD is Mojgan Prather DO. HPI: Mrs. Duran presented for a follow up. She tried levodopa, but had intolerable GI upset. She continued to have head bobbing, shaking that goes down the spine . This was worse with stress. She had some hand shaking and more in the left hand. The hand shaking did not interfere with things she did for herself daily. She was able to work through her stressors. She had some mild neck pain and a headache with the stress. She had no falls or near falls since October. She had some unsteadiness on stairs and uneven ground. She did move slower. She did have PT with benefit, but did not continue the exercises at home. Her movement did not awake her at night. Her appetite and hydration were good. She would get leg cramps if she did not stay hydrated. Her mood was wonderful . Current Outpatient Medications Medication Sig Dispense Refill betahistine Take 1 capsule (8 mg total) by mouth 2 (two) times a day Breyna 160-4.5 mcg/actuation inhaler Inhale 2 puffs 2 (two) times a day calcium carbonate-vitamin D3 1,250 mg (500 mg elemental)-600 unit tablet every 12 (twelve) hours fluticasone propionate (Flonase Allergy Relief) 50 mcg/actuation [...] tablet (20 mg total) by mouth daily triamterene-hydroCHLOROthiazide 37.5-25 mg per tablet/capsule Take 1 tablet/capsule by mouth daily 30 tablet/capsule 11 Ventolin HFA 90 mcg/actuation inhaler INHALE 1 PUFF BY MOUTH EVERY 4 HOURS NEEDED for 33 No current facility-administered medications for this visit. Allergies Allergen Reactions Penicillin G Rash Past Medical History: Diagnosis Date Asthma High cholesterol Past Surgical History: Procedure Laterality Date CHOLECYSTECTOMY HYSTERECTOMY LEG SURGERY Family History Problem Relation Age of Onset Diabetes Mother Heart disease Father No Known Problems Sister Heart disease Brother Tremor Neg Hx Parkinsonism Neg Hx Ethnicity: Non- Social History Tobacco Use Smoking status: Never Smokeless tobacco: Never Substance and Sexual Activity Drug use: Never Sexual activity: None Alcohol Use: Not At Risk (10/16/2023) AUDIT-C Frequency of Alcohol Consumption: Never Average Number of Drinks: Not on file Frequency of Binge Drinking: Not on file Review of Systems Vitals BP 135/80 (BP Location: Right arm, Patient Position: Sitting) Pulse 97 Ht 149.9 cm (4' 11 ) Wt 68.7 kg (151 lb 6.4 oz) BMI 30.58 kg/m?? Physical Exam TWSTRS [place] Spasmodic Torticollis Rating Scale (TWSTRS) - Section 1 Chin Rotation Rating: Slight (< 1/4 range (1 - 22 degrees)) Chin Rotation Side: Equal Laterocollis Rating: Mild (1 - 15 degrees) Laterocollis Side: Left Anterocollis OR Retrocollis (Score only one): Retrocollis Retrocollis Rating: Mild (1 - 15 degrees) Lateral Shift Present?: Absent Lateral Shift Side: Right Sagittal Shift Present?: Present Sagittal Shift Forward/Back: Forward Duration Factor: Constant (>75% of the time) often maximal Effect of Sensory Tricks: Little or no benefit from tricks Shoulder Elevation / Anterior Displacement: Mild (< 1/3 possible range) intermittent or constant Range of Motion (without sensory tricks): Able to move head well past midline but not to extreme opposite position Time (without sensory tricks): > 60 seconds TOTAL TWSTRS SCORE (Out of 35): 18 II. DISABILITY SCALE (MAXIMUM = 30) Work: No difficulty Activities of Daily Living: No difficulty with any activity Driving: No difficulty (or has never driven car) Reading: No difficulty Television: No difficulty Activities Outside of the Home: No difficulty Total Disability Score: 0 III. 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 [...] Marte in September and sooner if needed Return for NPT test today or next visit . My total encounter time on 02/19/2024 was 27 minutes which was spent in the activities documented inthe note. This includes time spent reviewing previous notes prior to the visit, examination, counseling/education, medication management, coordination of care and documentation after the visit in direct care of the patient. This time does not include time spent in any separately reportable services. I have established and we will maintain a relationship of this patient to longitudinally manage thechronic neurological movement disorders. 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 Alternate therapy 10/18/2023 02/19/2024 documented as of this encounter Historical Medications * This list may reflect changes made after this encounter. betahistine Take 1 capsule (8 mg total) by mouth 2 (two) times a day added in this encounter Care Teams Dual Rate Dealer Relationship Specialty Start Date End Date Mojgan Prather DO [address] [facility] [address] [place] [address] [phone] PCP - General Family Medicine 12/9/24 documented as of this encounter
--- OUTSIDE RECORDS SUMMARY | 2024-03-16 15:06 | XMS_ITS | Encounter Summary ---
Author Organization [facility] Address [address] [place] [address] Phone Care Team Providers Care Program Project Manager Name Role Phone Luiz Kilgore MD Primary Care Provider Encounter Details Date Type Department Care Team (Late st Contact Info) Description 09/08/2023 Telephone [facility] Scheduling [address] [place] [address] Michelle Mcclain Social History Tobacco Use Types Packs/Day Years Used Date Smoking Tobacco: Never Assessed Comments Unknown Sex and Gender Information Value Date Recorded Sex Assigned at Not on file Legal Sex Female 11:46 AM OFFICER CAPTAIN Gender Identity Not on file Sexual Orientation Not on file documented as of this encounter Miscellaneous Notes * Telephone Encounter - Roseline Marlow - 09/08/2023 7:57 AM CDT Referral to neurology scanned into chart Dx: spasmodic torticollis documented in this encounter Plan of Treatment Not on file documented as of this encounter Visit Diagnoses Not on filedocumented in this encounter Care Teams Program Project Manager Relationship Specialty Start Date End Date Luiz Kilgore MD [address] [facility] [address] [place] [id number] PCP - General Family Medicine 04/20/23 02/18/24 documented as of this encounter
--- OUTSIDE RECORDS SUMMARY | 2024-03-16 15:06 | XMS_ITS | Encounter Summary ---
Author Organization [facility] Address [address] [place] [address] Phone Care Team Providers Care Health Information Systems Technician Name Role Phone Luiz Kilgore MD Primary Care Provider [phone] Encounter Details Date Type Department Care Team (Late st Contact Info) Description 09/11/2023 Telephone [facility] Scheduling [address] [place] [address] Belen Pacheco Social History Tobacco Use Types Packs/Day Years Used Date Smoking Tobacco: Never Assessed Comments Unknown Sex and Gender Information Value Date Recorded Sex Assigned at Not on file Legal Sex Female 11:46 AM GYROSCOPIC ENGINEERING TECHNICIAN Gender Identity Not on file Sexual Orientation Not on file documented as of this encounter Miscellaneous Notes * Telephone Encounter - Belen Pacheco - 09/11/2023 11:28 AM CDT Records obtained include the following: [x] Referral Epic Location: Chart Review - Referrals Date: 09/08/23 [x] Office Note(s) Epic Location: Chart Review - Media Date: 09/08/23 [] ED/Hospital Visit Epic Location: Not Applicable Date: [] Previous Neuro Records Epic Location: Not Applicable Date: [] Neurological Testing/Procedures Epic Location: Not Applicable Date: Test/Procedure Name: Epic Location: Not Applicable Date: Test/Procedure Name: Epic Location: Not Applicable Date: Test/Procedure Name: [] Other Epic Location: Date: documented in this encounter Plan of Treatment Not on file documented as of this encounter Visit Diagnoses Not on filedocumented in this encounter Care Teams Health Information Systems Technician Relationship Specialty Start Date End Date Luiz Kilgore MD [address] [facility] [address] [address] PCP - General Family Medicine 04/20/23 02/18/24 documented as of this encounter
--- OUTSIDE RECORDS SUMMARY | 2024-03-16 15:06 | XMS_ITS | Encounter Summary ---
Author Organization [facility] Address [address] [facility] [address] [place] [address] Phone Care Team Providers Care Crop Scout Name Role Phone Luiz Kilgore MD Primary Care Provider [phone] Encounter Details Date Type Department Care Team (Late st Contact Info) Description 12/11/2023 Telephone [facility] [address] [place] [phone] Janice Sun, RN Social History Tobacco [...] on file Legal Sex Female 11:46 AM NET PROGRAMMER Gender Identity Not on file Sexual Orientation Not on file documented as of this encounter Miscellaneous Notes * Telephone Encounter - Janice Sun RN - 12/11/2023 1:58 PM CDT Reply: Good morning, Thank you for the update and I shared this with MARLY Herrera. This sounds appropriate and please tolet us know if anything changes and you need anything prior to the next appointment. Take Janice Manning, RN Movement Disorders Department of Neurology ----- Message ----- From:Shawn Duran Sent:12/11/2023 12:26 PM CDT To:Sharon Ansari NP Subject:Carb/levo 25-100 mg prescription I have had intense stomach issues (pain, throwing up several times) for the past 3 weeks. I have tried lowering the dosage to one half tablet, then I stopped taking it last week after several nights and days of intense stomach issues. Therefore, I have decided to discontinue this prescription as my stomach cannot tolerate it. At this point, my dystonia is mild and is not impacting my life function. If the dystonia becomes more impacting, I will contact you and will consider other treatment options that we discussed. I will be keeping all future appointments to keep my condition monitored. In appreciate your care. Thank you. documented in this encounter Plan of Treatment Not on file documented as of this encounter Visit Diagnoses Not on filedocumented in this encounter Care Teams Crop Scout Relationship Specialty Start Date End Date Luiz Kilgore MD [facility] [address] [address] PCP - General Family Medicine 04/20/23 02/18/24 documented as of this encounter
--- OUTSIDE RECORDS SUMMARY | 2024-03-16 15:06 | XMS_ITS | Encounter Summary ---
Author Organization [facility] Address [address] [place] [address] Phone Care Team Providers Care Malt House Loader Name Role Phone Luiz Kilgore MD Primary Care Provider [phone] Reason for Visit * Reason Comments Initial Consult Torticollis * Consultation (Routine) - Closed Specialty Diagnoses / Procedures Referred By Contac t Referred To Contact Neurology Diagnoses Spasmodic torticollis Luiz Kilgore MD [facility] [address] [address] Phone: tel: fax: Kaylah Causey CMA Referral ID Status Reason Start Date Expiration Date V isits Requested Visits Authorized [id number] Closed Specialty Services Required 09/08/2023 10/07/2024 1 1 Encounter Details Date Type Department Care Team (Late st Contact Info) Description 10/18/2023 1:00 PM CDT Office Visit [facility] Movement Disorders [address] [facility] Medicine 6th [place] [address] [place] [address] Marry Marte MD [address] [place] [address] 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 (Primary Dx); Spasmodic torticollis Social History Tobacco Use Types Packs/Day Years [...] on file Legal Sex Female 11:46 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 Gender Identity Not on file Sexual Orientation Not on file documented as of this encounter Last Filed Vital Signs Vital Sign Reading Time Taken Comments Blood Pressure 138/85 10/18/2023 12:52 PM CDT Pulse 84 10/18/2023 12:52 PM CDT Temperature - - Respiratory Rate - - Oxygen Saturation - - Inhaled Oxygen Concentration - - Weight 70.6 kg (155 lb 9.6 oz) 10/18/2023 12:52 PM CDT Height 149.9 cm (4' 11 ) 10/18/2023 12:52 PM CDT Body Mass Index 31.43 10/18/2023 12:52 PM CDT documented in this encounter Ordered Prescriptions Prescription Sig Dispense Quantity Refills Last Filled Start Date End Date carbidopa-levodopa (SINEMET) 25-100 mg per tabletIndications: Parkinsonism Take 0.5 tablets by mouth 3 (three) [...] (three) times a day. 1125 tablet 2 10/18/2023 documented in this encounter Progress Notes * Marry Marte MD - 10/18/2023 1:00 PM CDT Images from the original note were not included. [facility] Office Visit Patient: Shawn Duran Referred by: Luiz Kilgore MD : 1945 Visit Date: 10/18/2023 Clinician: Marry Marte MD Chief Complaint Shawn Duran is a 78 y.o. female who presents for Initial Consult and Torticollis Hand Dominance: Referred by Luiz Kilgore MD. Her PMD is Luiz Kilgore MD. HPI: Shawn Duran is a 78 year old right handed female woman who presents for cervical dystonia. She noticed shaking of her body in December of 2022. She really noticed shaking of her head that may have been going on for some time. Her family noticed the shaking when she was reading. She was seen bya neurologist who diagnosed who diagnosed her with cervical dystonia by a physician at [facility]. She did not start any treatment for it. She was considered for botulinum toxin injection but she as moving to [place] so she decided to be evaluated here. She had some waning of her voice that they thought was related to inhaler therapy than anything else. She had no tremor in the voice. The shaking tended to be side to side. She could get a little headache, but the neck was not painful or sore. She did noticed some left shoulder could go with it. She may have some stiffness when she turned in driving but it was not a big deal. Her handwriting was getting worse as it was shaky and it was elizondo rder to finish letters. She had to print. The letter size was bigger. Her balance had always been poor due to Meniere's disease but she was not falling. She had no stiffness in the arms or legs. She had no trouble arms and legs. Shew was walking slower. Her sense of smell was not as strong since COVID but it was mild. She had no vivid dreaming and no REM behavior though she did snore. She had a sleep study years ago but she did not want a CPAP due to claustrophobia. Sleep was not a major problem, though she did have some daytime sedation. She had rare AM headache. The shaking of the head happened when she first lay down in the bed. She found the neck to be mildly irritating but was not major. Current Outpatient Medications Medication Sig Dispense Refill [...] MOUTH EVERY 4 HOURS NEEDED for 33 carbidopa-levodopa (SINEMET) 25-100 mg per tablet Take [...] (three) times a day. 1125 tablet 2 No current facility-administered medications for this visit. Allergies Allergen Reactions Penicillin G Rash Etiologic Risks: Encephalitis: No Head Trauma: No Medications: No (she may have taken compazine.) Environmental toxins: No Past Medical History: Diagnosis Date Asthma High cholesterol Past Surgical History: Procedure Laterality Date CHOLECYSTECTOMY HYSTERECTOMY LEG SURGERY Family History Problem Relation Age of Onset Diabetes Mother Heart disease Father No Known Problems Sister Heart disease Brother Tremor Neg Hx Parkinsonism Neg Hx Ancestry: Ancestry #1: Romansh Ancestry #2: Ethnicity: Non- Social History Tobacco Use Smoking status: Never Smokeless tobacco: Never Substance and Sexual Activity Drug use: Never Sexual activity: None Alcohol Use: Not At Risk (10/16/2023) AUDIT-C Frequency of Alcohol Consumption: Never Average Number of Drinks: Not on file Frequency of Binge Drinking: Not on file Additional Social History Living with: Spouse Home Responsibilities Include: Meal Preparation, Laundry, Household Maintenance, Shopping, Yardwork Dwelling: Condominium Income Source: Custodial/Pension Review of Systems Vitals BP 138/85 (BP Location: Left arm, Patient Position: Sitting) Pulse 84 Ht 149.9 cm (4' 11 ) Wt 70.6 kg (155 lb 9.6 oz) BMI 31.43 kg/m?? Physical Exam Mental Status LOC: Alert Orientation: Normal Attention: Normal Speech: Normal Language: Normal Memory: Normal Intellect: Normal Judgment: Normal Affect: Normal Mood: Normal Thought Content: Normal Thought Process: Normal Insight: Normal Cranial Nerves Marie: Full Pupils Right: 4 Pupils Left: 4 Reaction to Accommodation - Right: Yes Reaction to Accommodation - Left: Yes Shape - Right: Round Shape - Left: Round Extraocular Movements: Full Convergence: Full Nystagmus: None Eyelids: Normal Facial Sensation - Left: Normal Facial Sensation - Right: Normal Eye Blinking: Normal Cranial Nerves Continued Facial Strength - Both: Normal Facial Involuntary Movements: Normal Facial Expression: 0 - Normal Hearing - Both: Abnormal TWSTRS [place] Spasmodic Torticollis Rating Scale (TWSTRS) - Section 1 Chin Rotation Rating: Slight (< 1/4 range (1 - 22 degrees)) Chin Rotation Side: Right Laterocollis Rating: Mild (1 - 15 degrees) [...] interference from pain PAIN SCALE TOTAL: 3 MDS UPDRS PART III: Motor Examination Is the Patient on Parkinson's Medications?: No ON/OFF: OFF Facial Expression: Normal Rigidity - Neck: Normal Finger Tapping - Right Hand: Mild Finger Tapping - Left Hand: Mild Hand Movements - Right Hand: Mild Hand Movements - Left Hand: Slight Pronation-Supination Movements - Right Hand: Mild Pronation-Supination Movements - Left Hand: Mild Toe Tapping - Right Foot: Mild Toe Tapping - Left Foot: Mild Leg Agility - Right Leg: Slight Leg Agility - Left Leg: Slight Arising From Chair: Normal Gait: Slight Freezing of Gait: Normal Postural Stability: Slight Posture: Normal Global Spontaneity of Movement (Body Bradykinesia): Normal Postural Tremor - Right Hand: Slight Postural Tremor - Left Hand: Slight Kinetic Tremor - Right Hand: Normal Kinetic Tremor - Left Hand: Normal Rest Tremor Amplitude - Right Upper Extremity: Normal Rest Tremor Amplitude - Left Upper Extremity: Normal Rest Tremor Amplitude - Right Lower Extremity: Normal Rest Tremor Amplitude - Left Lower Extremity: Normal Rest Tremor Amplitude - Lip/Jaw: Normal Constancy of Rest: Normal Were dyskinesias present?: No Assessment/Plan Diagnoses and all orders for this visit: 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 We discussed that she had some mild parkinsonism but I did not think she had Parkinson disease. In eithercase levodopa is the first line medication. We could consider an anticholinergic but we were worried about cognitive side effects. For the tremor a beta glen may work, but she had asthma and this may complicate it. If we wanted to do intermittent therapy a low dose benzodiazepine could be tried. 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 Return in about 1 year (around 10/17/2024) for Annual Follow up. 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 Shawn Duran is a 78 y.o. 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 We discussed that she had some mild parkinsonism but I did not think she had Parkinson disease. In eithercase levodopa is the first line medication. We could consider an anticholinergic but we were worried about cognitive side effects. For the tremor a beta glen may work, but she had asthma and this may complicate it. If we wanted to do intermittent therapy a low dose benzodiazepine could be tried. 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- Primary Spasmodic torticollis documented in this encounter Discontinued Medications Medication Sig Discontinue Reason Start Date End Da te fluticasone propion-salmeteroL (ADVAIR DISKUS) 250-50 mcg/dose diskus inhaler 04/01/2020 10/18/19 24 dexAMETHasone (DECADRON) 6 mg tablet 10/08/2019 10/18/2023 calcium carbonate (OS-KANU) 1,500 mg (600 mg elemental) tablet every 12 hours 10/18/2023 betahistine Take 1 capsule (8 mg total) by mouth 3 (three) times a day 10/16/2023 10/18/2023 ascorbic acid 500 mg tablet,chewable daily 10/18/2023 documented as of this encounter Orders Outpatient Referral Count Last Ordered Date Fir st Ordered Date AMB REFERRAL TO NEUROLOGY 1 10/18/2023 documented in this encounter Care Teams Malt House Loader Relationship Specialty Start Date End Date Luiz Kilgore MD [address] [facility] [address] [place] [address] PCP - General Family Medicine 04/20/23 02/18/24 documented as of this encounter
--- OUTSIDE RECORDS SUMMARY | 2024-03-16 15:07 | XMS_ITS | Patient Health Record ---
Author Organization [facility] Address [address] [place], [place] [address] Care Team Providers Care Dye Jig Operator Name Role Phone Glenda Hawthorne Primary Care Provider Waylon Richmond Unavailable [phone] Allergies Allergen (clinical drug ingredient) Drug/Non Drug Allergy documented on EMR Reaction Allergy Type Onset Date Status Penicillin (uncoded) Unknown Allergy Active Reason For Referral No Information Medications Medication SIG (Take, Route, Frequency, Duration) Notes Start Date End Date Status Montelukast Sodium 10 MG 1 tablet Orally Once a day Active Flonase Allergy Relief 50 MCG/ACT 2 spray in each nostril Nasally Once a day Active Calcium 600 MG 1 tablet Orally twic e a day Active Vitamin C 500 MG 1 tablet Orally Once a day Active Vitamin D3 25 MCG (1000 UT) 4 capsules Orally daily Active Ventolin HFA 108 (90 Base) MCG/ACT INHALE 1 PUFF BY MOUTH EVERY 4 HOURS NEEDED for 33 Active Omeprazole 20 mg 1 tablet Orally twic e a day Active Acetaminophen 325 MG 1 tablet as needed Orally every 4 hrs Active Meclizine HCl 30 MG as directed Orally Active Rosuvastatin Calcium 10 MG 1 tablet Oral ly Once a day for 30 day(s) Active Problems Problem Type SNOMED Code ICD Code Onset Dates Problem Status W/U Status Risk Notes Problem [id number] Chronic allergic rhinitis (J30.9) Active confirmed Continue with fluticasone nasal spray and montelukast Problem 006490771 Mixed hyperlipidemia (E78.2) Active confirmed per pcp Problem [id number] Mild intermittent asthma without complication (J45.20) Active confirmed Mild intermittent asthma, exacerbation, no excess use of rescue inhaler. PFT normal, continue with current therapy. Problem [id number] History of COVID-19 (Z86.16) Active confirmed Covid pneumonia in September 2019, since then received both doses of Covid vaccination. Plan Of Treatment No Information Insurance Providers Payer Name Payer Address Payer Phone Subscriber Number Group Number Insured Name Patient Relationship to Insured Coverage Start Date Coverage End Date Medicare Part B [address] [place] [address] [id number] Shawn Duran Self - patient is the insured [address] [address] [place] [address] [id number] Shawn Duran Self - patient is the insured Medical (General) History Medical History History ICD Code Asthma Allergies/Hay fever HLP Bronchitis Covid 09/2019 Surgical History Surgery Date(Month/Year) broken leg gall bladder removal hysterectomy
--- OUTSIDE RECORDS SUMMARY | 2024-03-16 22:17 | XMS_ITS | Encounter Summary ---
Author Organization [facility] Address [address] [place] [address] Phone Care Team Providers Care Lab Specialist Name Role Phone Luiz Kilgore MD Primary Care Provider [phone] Encounter Details Date Type Department Care Team (Late st Contact Info) Description 08/16/2023 Telephone [facility] Otolaryngology [facility] Medicine 11th [place] [address] [place] [id number] Jana Austin Au.D. 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 - 08/16/2023 10:03 AM CDT Triage call for 10/[address] Castillo. Who Have you previously seen for this problem? Dx with meniere's in [place] by ENT, had 1 episode of LOC, went to PT for balance which helped for a while. Also had database specialist for LOC (told it was potassium level) [...] on filedocumented in this encounter Care Teams Lab Specialist Relationship Specialty Start Date End Date Luiz Kilgore MD [facility] [address] [place] [address] PCP - General Family Medicine 04/20/23 02/18/24 documented as of this encounter
--- OUTSIDE RECORDS SUMMARY | 2024-03-16 22:17 | XMS_ITS | Referral Summary ---
Author Organization [facility] [place] Address [address] [place] [address] Care Team Providers Care Quality Management Coordinator Name Role Phone Mojgan Prather DO Primary Care Provider [phone] Encounters Date Type Department Care Team Description 02/19/2024 10:30 AM TESTING PROJECTS ADMINISTRATOR Office Visit [facility] Movement Disorders [address] [place] [phone] Sharon Ansari NP Adult onset primary focal [...] 10/18/2023 Assessment & Plan (02/19/2024 1:04 PM TESTING PROJECTS ADMINISTRATOR): Mrs Duran presented for a follow up. [...] on file Legal Sex Female 11:46 AM TESTING PROJECTS ADMINISTRATOR Gender Identity Not on file Sexual Orientation Not on file Last Filed Vital Signs Vital Sign Reading Time Taken Comments Blood Pressure 135/80 02/19/2024 10:11 AM TESTING PROJECTS ADMINISTRATOR Pulse 97 02/19/2024 10:11 AM TESTING PROJECTS ADMINISTRATOR Temperature - - Respiratory Rate - - Oxygen Saturation - - Inhaled Oxygen Concentration - - Weight 68.7 kg (151 lb 6.4 oz) 02/19/2024 10:11 AM TESTING PROJECTS ADMINISTRATOR Height 149.9 cm (4' 11 ) 02/19/2024 10:11 AM TESTING PROJECTS ADMINISTRATOR Body Mass Index 30.58 02/19/2024 10:11 AM TESTING PROJECTS ADMINISTRATOR Plan of Treatment Not on file Insurance MEDICARE BC[place] MEDICARE [place] MEDICARE Care Teams Quality Management Coordinator Relationship Specialty Start Date End Date Mojgan Prather DO [address] [place] [address] [address] [place] [address] PCP - General Family Medicine 02/19/24
--- OUTSIDE RECORDS SUMMARY | 2024-03-16 22:17 | XMS_ITS | Encounter Summary ---
Author Organization [facility] Address [address] [place] [address] Phone Care Team Providers Care Aircraft Powertrain Repairer Name Role Phone Luiz Kilgore MD Primary Care Provider [phone] Encounter Details Date Type Department Care Team (Latest Contact Info) Description 10/16/2023 8:40 AM CDT Procedure visit [facility] Otolaryngology [address] [place] [address] 11th [place] [address] [place] [address] Sensorineural hearing loss, asymmetrical (Primary [...] on file Legal Sex Female 11:46 AM SHIRT BANDER Gender Identity Not on file Sexual Orientation [...] Detailed medical history was obtained by medical billing associate and reviewed - see notes on audiogram for brief history. Results were reviewed with the patient by dieing out machine operator and/or physician. Tests performed: basic [...] Primary documented in this encounter Care Teams Aircraft Powertrain Repairer Relationship Specialty Start Date End Date Luiz Kilgore MD [address] [facility] [address] [address] PCP - General Family Medicine 04/20/23 02/18/24 documented as of this encounter
--- OUTSIDE RECORDS SUMMARY | 2024-03-16 22:17 | XMS_ITS | Clinical Summary ---
Author Organization [facility] [address] Address [address] [place] [address] Care Team Providers Care Harvest Worker Name Role Phone Mojgan Prather DO Primary Care Provider [phone] Allergies Active Allergy Reactions Criticality Noted Date [...] 10/18/2023 Assessment & Plan (02/19/2024 1:04 PM STATISTICAL METHODS TEACHER): Mrs Duran presented for a follow up. [...] 10/16/2023 Asymmetrical sensorineural hearing loss 10/16/19 24 Encounters Date Type Department Care Team Description 02/19/2024 10:30 AM STATISTICAL METHODS TEACHER Office Visit 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) from Last 3 Months Surgical History Surgery Date Site/Laterality Comments CHOLECYSTECTOMY HYSTERECTOMY LEG SURGERY Medical History Medical History Date Comments Asthma High cholesterol Family History Medical History Relation Name Comments Heart disease Brother Heart disease Father Diabetes Mother No Known Problems Sister Parkinsonism Neg Hx Tremor Neg Hx Relation Name Status Comments Brother Father Mother Sister Social History Tobacco Use Types Packs/Day Years [...] on file Legal Sex Female 11:46 AM STATISTICAL METHODS TEACHER Gender Identity Not on file Sexual Orientation Not on file Obstetrics History Last Filed Vital Signs Vital Sign Reading Time Taken Comments Blood Pressure 135/80 02/19/2024 10:11 AM STATISTICAL METHODS TEACHER Pulse 97 02/19/2024 10:11 AM STATISTICAL METHODS TEACHER Temperature - - Respiratory Rate - - Oxygen Saturation - - Inhaled Oxygen Concentration - - Weight 68.7 kg (151 lb 6.4 oz) 02/19/2024 10:11 AM STATISTICAL METHODS TEACHER Height 149.9 cm (4' 11 ) 02/19/2024 10:11 AM STATISTICAL METHODS TEACHER Body Mass Index 30.58 02/19/2024 10:11 AM STATISTICAL METHODS TEACHER Plan of Treatment Health Maintenance Due Date Last Done Comments Depression Screening 1945 Fall Risk Assessment 1945 Hepatitis C Screening 1945 Osteoporosis Screening-Bone Density Scan 1945 Pneumococcal vaccine 65+ (1 of 2 - PCV) 09/19/1953 0 03/13/2002 Hepatitis B Screening 09/19/1965 Zoster Vaccine (2 of 3) 04/23/2010 02/26/2010, 10/15 Well Visit 65+ 09/19/2012 DTaP/Tdap/Td Vaccine (2 - Td or Tdap) 01/29/2017, 2000 Influenza Vaccine (#1) 2023 11/09/2013, 2011 Insurance MEDICARE BCBS MEDICARE [place] MEDICARE Care Teams Harvest Worker Relationship Specialty Start Date End Date Mojgan Prather DO [address] [place] [address] [address] [place] [address] PCP - General Family Medicine 02/19/24
--- OUTSIDE RECORDS SUMMARY | 2024-03-16 22:17 | XMS_ITS | Encounter Summary ---
Author Organization [facility] Address [address] [place] [address] Phone Care Team Providers Care String Cutter Name Role Phone Luiz Kilgore MD Primary Care Provider [phone] Encounter Details Date Type Department Care Team (Late st Contact Info) Description 09/11/2023 Telephone [facility] Scheduling [address] [place] [address] Belen Pacheco Social History Tobacco Use Types Packs/Day Years Used Date Smoking Tobacco: Never Assessed Comments Unknown Sex and Gender Information Value Date Recorded Sex Assigned at Not on file Legal Sex Female 11:46 AM SENIOR PEOPLESOFT DEVELOPER Gender Identity Not on file Sexual Orientation [...] on filedocumented in this encounter Care Teams String Cutter Relationship Specialty Start Date End Date Luiz Kilgore MD [address] [facility] [address] [address] PCP - General Family Medicine 04/20/23 02/18/24 documented as of this encounter
--- OUTSIDE RECORDS SUMMARY | 2024-03-16 22:17 | XMS_ITS | Encounter Summary ---
Author Organization [facility] Address [address] [place] [address] Phone Care Team Providers Care Proposal Lead Writer Name Role Phone Luiz Kilgore MD Primary Care Provider [phone] Reason for Visit * Reason Comments Initial Consult Torticollis * Consultation (Routine) - Closed Specialty Diagnoses / Procedures Referred By Contac t Referred To Contact Neurology Diagnoses Spasmodic torticollis Luiz Kilgore MD [facility] [address] [address] Phone: tel: fax: Kaylah Causey CMA Referral ID Status Reason Start Date Expiration Date V isits Requested Visits Authorized [id number] Closed Specialty Services Required 09/08/2023 10/07/2024 1 1 Encounter Details Date Type Department Care Team (Late st Contact Info) Description 10/18/2023 1:00 PM CDT Office Visit [facility] Movement Disorders [address] [facility] Medicine 6th [place] [address] [place] [address] Marry Marte MD [address] [place] [address] Adult onset primary focal and [...] on file Legal Sex Female 11:46 AM MACHINE FOLDER Gender Identity Not on file Sexual Orientation [...] 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 She did not start any treatment for it. She was considered for botulinum toxin injection but she as moving to [place] so she decided to be evaluated here. [...] Hx Parkinsonism Neg Hx Ancestry: Ancestry #1: Icelandic Ancestry #2: Ethnicity: Non- Social History Tobacco [...] Maintenance, Shopping, Yardwork Dwelling: Condominium Income Source: Chcf/Pension Review of Systems Vitals BP 138/85 (BP [...] - Normal Hearing - Both: Abnormal TWSTRS [place] Western Spasmodic Torticollis Rating Scale (TWSTRS) - [...] 10/18/2023 documented in this encounter Care Teams Proposal Lead Writer Relationship Specialty Start Date End Date Luiz Kilgore MD [address] [facility] [address] [place] [address] PCP - General Family Medicine 04/20/23 02/18/24 documented as of this encounter
--- OUTSIDE RECORDS SUMMARY | 2024-03-16 22:17 | XMS_ITS | Encounter Summary ---
Author Organization [facility] Address [address] [facility] [address] [place] [address] Phone Care Team Providers Care Children'S Entertainer Name Role Phone Luiz Kilgore MD Primary Care Provider [phone] Encounter Details Date Type Department Care Team (Late st Contact Info) Description 11/01/2023 Telephone [facility] Movement Disorders [address] [place] [phone] Janice Sun, RN Social History Tobacco [...] on file Legal Sex Female 11:46 AM GENERAL ASSISTANT Gender Identity Not on file Sexual Orientation Not on file documented as of this encounter Miscellaneous Notes * Telephone Encounter - Janice Sun RN - 11/01/2023 12:02 PM CDT Reply: Good afternoon, That sounds fine. Let us know if you have any concerns. Take Janice Manning, RN Movement Disorders Department of Neurology ----- Message ----- From:Shawn uDran Sent:11/01/2023 11:08 AM CDT To:Patient Medical Advice [...] on filedocumented in this encounter Care Teams Children'S Entertainer Relationship Specialty Start Date End Date Luiz Kilgore MD [address] [place] [address] [address] [place] [address] PCP - General Family Medicine 04/20/23 02/18/24 documented as of this encounter
--- OUTSIDE RECORDS SUMMARY | 2024-03-16 22:17 | XMS_ITS | Encounter Summary ---
Author Organization [facility] Address [address] [facility] [address] [place] [address] Phone Care Team Providers Care Sales Representative Adding Machines Name Role Phone Luiz Kilgore MD Primary Care Provider [phone] Encounter Details Date Type Department Care Team (Late st Contact Info) Description 12/11/2023 Telephone [facility] Movement Disorders [address] [place] [phone] Janice Sun, RN Social History Tobacco [...] on file Legal Sex Female 11:46 AM SELF SEALING FUEL TANK BUILDER Gender Identity Not on file Sexual Orientation [...] on filedocumented in this encounter Care Teams Sales Representative Adding Machines Relationship Specialty Start Date End Date Luiz Kilgore MD [facility] [address] [address] PCP - General Family Medicine 04/20/23 02/18/24 documented as of this encounter
--- OUTSIDE RECORDS SUMMARY | 2024-03-16 22:17 | XMS_ITS | Encounter Summary ---
Author Organization [facility] Address [address] [place] [address] Phone Care Team Providers Care Marketing Programs Specialist Name Role Phone Luiz Kilgore MD Primary Care Provider [phone] Reason for Visit * Reason Comments Vertigo Meniere's Disease Encounter Details Date Type Department Care Team (Latest Contact Info) Description 10/16/2023 9:00 AM CDT Office Visit [facility] - [facility] ENT [address] [facility] Advanced Medicine 11th [place] [address] [place] [address] Afshin Castillo MD [address] [place], [place] [phone] Asymmetrical sensorineural hearing loss (Primary Dx); Meniere's [...] on file Legal Sex Female 11:[address] Gender Identity Not on file Sexual Orientation [...] to re- establish care after moving from [place]. Her out of state ENT diagnosed with [...] dystonia treated with carbidopa/levodopa. SH: Moved to [place] to be with son Past Medical/Surgical History [...] degree thrusts of head to midline. Cerebellar/Postural: Xyuhxy-[id number]: Normal. Romberg: eyes open - normal. eyes [...] and edited by me. Afshin Castillo M.D. Outcomes Analyst Director, [facility] Otology and Neurotology Department of Otolaryngology [facility] in [place] [email or web address] Office: Clinic: This note was created in part with the assistance of [employer] voice recognition software. Double Needle Operator Lockstitch variances may occur. documented in this encounter [...] 4 added in this encounter Care Teams Marketing Programs Specialist Relationship Specialty Start Date End Date Luiz Kilgore MD [address] [facility] [address] [address] PCP - General Family Medicine 04/20/23 02/18/24 documented as of this encounter
--- OUTSIDE RECORDS SUMMARY | 2024-03-16 22:17 | XMS_ITS | Encounter Summary ---
Author Organization [facility] Address [address] [place] [address] Phone Care Team Providers Care Drill Presser Name Role Phone Luiz Kilgore MD Primary Care Provider Encounter Details Date Type Department Care Team (Late st Contact Info) Description 09/08/2023 Telephone [facility] Scheduling [address] [place] [address] Michelle Mcclain Social History Tobacco Use Types Packs/Day Years Used Date Smoking Tobacco: Never Assessed Comments Unknown Sex and Gender Information Value Date Recorded Sex Assigned at Not on file Legal Sex Female 11:46 AM VIRTUAL REALITY SPECIALIST Gender Identity Not on file Sexual Orientation Not on file documented as of this encounter Miscellaneous Notes * Telephone Encounter - Roseline Marlow - 09/08/2023 7:57 AM CDT Referral to neurology scanned into chart Dx: spasmodic torticollis documented in this encounter Plan of Treatment Not on file documented as of this encounter Visit Diagnoses Not on filedocumented in this encounter Care Teams Drill Presser Relationship Specialty Start Date End Date Luiz Kilgore MD [address] [facility] [address] [place] [address] PCP - General Family Medicine 04/20/23 02/18/24 documented as of this encounter
--- OUTSIDE RECORDS SUMMARY | 2024-03-16 22:17 | XMS_ITS | Encounter Summary ---
Author Organization [facility] Address [address] [facility] [address] [place] [address] Phone Care Team Providers Care Apprentice Cook Name Role Phone Luiz Kilgore MD Primary Care Provider [phone] Encounter Details Date Type Department Care Team (Late st Contact Info) Description 11/16/2023 Telephone [facility] Movement Disorders [address] [place] [phone] Janice Sun, RN Social History Tobacco [...] on file Legal Sex Female 11:46 AM TOP SCREW Gender Identity Not on file Sexual Orientation [...] To:Sharon Ansari NP Subject:Dosage of carbides-levidopa Shawn Duran[place], [place] Being treated for dystonia. Personal goal [...] 3 times a day. Is this acceptable? [phone] documented in this encounter Plan of Treatment Not on file documented as of this encounter Visit Diagnoses Not on filedocumented in this encounter Care Teams Apprentice Cook Relationship Specialty Start Date End Date Luiz Kilgore MD [facility] [address] [address] PCP - General Family Medicine 04/20/23 02/18/24 documented as of this encounter
--- OUTSIDE RECORDS SUMMARY | 2024-03-16 22:17 | XMS_ITS | Encounter Summary ---
Author Organization 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 Encounter Details Date Type Department Care Team (Late st Contact Info) Description 02/19/2024 10:30 AM TELECOMMUNICATIONS OFFICER Office Visit [facility] Movement Disorders [address] [place] [phone] Sharon Ansari NP [address] [facility] [address] [place] [address] Adult onset primary focal and [...] on file Legal Sex Female 11:46 AM TELECOMMUNICATIONS OFFICER Gender Identity Not on file Sexual Orientation Not on file documented as of this encounter Last Filed Vital Signs Vital Sign Reading Time Taken Comments Blood Pressure 135/80 02/19/2024 10:11 AM TELECOMMUNICATIONS OFFICER Pulse 97 02/19/2024 10:11 AM TELECOMMUNICATIONS OFFICER Temperature - - Respiratory Rate - - Oxygen Saturation - - Inhaled Oxygen Concentration - - Weight 68.7 kg (151 lb 6.4 oz) 02/19/2024 10:11 AM TELECOMMUNICATIONS OFFICER Height 149.9 cm (4' 11 ) 02/19/2024 10:11 AM TELECOMMUNICATIONS OFFICER Body Mass Index 30.58 02/19/2024 10:11 AM TELECOMMUNICATIONS OFFICER documented in this encounter Progress Notes [...] oz) BMI 30.58 kg/m?? Physical Exam TWSTRS [place] Spasmodic Torticollis Rating Scale (TWSTRS) - [...] to longitudinally manage thechronic neurological movement disorders. 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
== END 2024-03-09 14:45 | disposition home or self-care (01) ==
PROVIDERS: Emergency Provider Physician Assistant; PCP Family Medicine
DX: R25.8 Other abnormal involuntary movements (principal); T48.6X5A Adverse effect of antiasthmatics, initial encounter; J45.909 Unspecified asthma, uncomplicated; Z79.899 Other long term (current) drug therapy
CPT/HCPCS: 99281

== ENCOUNTER 2024-06-21 14:37 | Outpatient (CLI) | payer OTHER, SELFPAY ==
--- NOTE | ~2024-06-21 | DEXA_ITS ---
Bone Density Report Name: STEVE LOW Age: 78 Sex: Female Ethnicity: White Date of : 1945 Indication: postmenopausal; screening for osteoporosis; height loss; asthma or emphysema; hysterectomy; Referring Provider: TONG TORRES Study: Bone densitometry was performed. Exam Date: June 21, 2024 Accession number: [id number] Bone Density: Region BMD T-score Z-score Classification AP Spine(L1-L4) 0.771 -2.5 0.0 Osteoporosis Femoral Neck (Left) 0.742 -1.0 1.2 Normal Total Hip (Left) 0.886 -0.5 1.4 Normal Femoral Neck (Right) 0.767 -0.7 1.4 Normal Total Hip (Right) 0.937 0.0 1.8 Normal Total Hip Mean 0.911 -0.3 1.6 Normal World Health Organization criteria for BMD impression classify patients as: Normal (T-score at or above -1.0), Osteopenia (T-score between -1.0 and -2.5), or Osteoporosis (T-score at or below -2.5). 10-year Fracture Risk: FRAX not reported because: Some T-score for Spine Total or Hip Total or Femoral Neck at or below -2.5 Clinical Information Provided by Patient: Has used the following medications: Vitamin D, Calcium Has the following medical conditions: Asthma or Emphysema, Hysterectomy Patient maximum height was 60 Menopause Age: 45 Drinks caffeinated beverages Onset of menses at age 15 Number of children 2 Impression: The patient has osteoporosis, based on the Total Spine T-score. Discussion: INCREASED RISK OF FRACTURE. BONE DENSITY IS UNDESIRABLY LOW AT ONE OR MORE SKELETAL SITES, CONSISTENT WITH POSTMENOPAUSAL OSTEOPOROSIS. This patient's lowest T-score meets the World Health Organization's (WHO) criteria for osteoporosis at one or more sites (T-score -2.5 or below). In untreated patients, the risk of osteoporotic fracture increases approximately two-fold for each 1.0 SD decrease in T-score. Low bone density is not the only risk factor for fracture; also consider factors such as patient's age, frailty or poor health, risk of falling, risk of injury, previous osteoporotic fracture, family history of osteoporosis, cigarette smoking, low body weight, etc. Not everyone with low bone mineral density has osteoporosis; osteomalacia and other metabolic bone disorders should also be considered. Patients who have osteoporosis should be evaluated for specific diseases and conditions (secondary causes) that may cause or contribute to bone loss. The [place] Association of Clinical Endocrinologists (AACE) and National Osteoporosis Foundation (NOF) recommend pharmacologic intervention for all postmenopausal women whose T-score is in this range. The patient should follow a healthful lifestyle (good nutrition with adequate calcium and vitamin D, and appropriate weight-bearing exercise). Follow-Up: Consider a repeat BMD and Vertebral Fracture Assessment (VFA) exam in 2 years or sooner if medically necessary, to reassess this patient's status. Reported by: RASHID on 06/21/2024 3:14:00 PM. Reviewed, dictated and finalized at location A. [facility]
--- OUTSIDE RECORDS SUMMARY | 2024-06-21 14:39 | XMS_ITS | Clinical Summary ---
Author Organization [facility] [address] Address [address] [place] [address] Care Team Providers Care Dental Amalgam Processor Name Role Phone Mojgan Prather DO Primary Care Provider [phone] Allergies Active Allergy Reactions Criticality Noted Date [...] e 37.5-25 mg per tablet/capsule Take 1 tablet/capsule by mouth daily 30 tablet/capsul e 11 4 10/16/19 25 Active betahistine Take 1 capsule (8 mg total) by mouth 2 (two) times a day Active Active Problems Problem Noted Date Diagnosed Date Chronic allergic rhinitis 10/18/2023 History of COVID-19 10/18/2023 Mild intermittent asthma without complication Mixed hyperlipidemia 10/18/2023 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 [...] Encounters Date Type Department Care Team Description 04/22/2024 8:20 AM BEEF BREAKER Office Visit [facility] ([facility]) - [facility] ENT [address] [facility] Advanced [facility] 11th [place] [address] [place] [address] Afshin Castillo MD Meniere's disease of left ear (Primary Dx); Asymmetrical sensorineural hearing loss from Last 3 Months Surgical History Surgery Date Site/Laterality Comments CHOLECYSTECTOMY HYSTERECTOMY LEG SURGERY COLONOSCOPY Medical History Medical History Date Comments Asthma High cholesterol HL (hearing loss) 2016 Family History Medical History Relation Name Comments Heart disease Brother Heart disease Father Gabino Lopez Snoring Father Gabino Lopez Diabetes Mother Jose Elias Kemp Cancer Paternal Grandmother Roma Kemp No Known Problems Sister Parkinsonism Neg Hx Tremor Neg Hx Relation Name Status Comments Brother Father Gabino Lopez Mother Jose Elias Kemp Paternal Grandmother Roma Kemp Sister Social History Tobacco Use Types Packs/Day [...] on file Legal Sex Female 11:46 AM BEEF BREAKER Gender Identity Not on file Sexual Orientation Not on file Obstetrics History Last Filed Vital Signs Vital Sign Reading Time Taken Comments Blood Pressure 135/80 02/19/2024 10:11 AM BEEF BREAKER Pulse 97 02/19/2024 10:11 AM BEEF BREAKER Temperature - - Respiratory Rate - - Oxygen Saturation - - Inhaled Oxygen Concentration - - Weight 68.6 kg (151 lb 3.2 oz) 04/22/2024 8:15 A M BEEF BREAKER Height 149.9 cm (4' 11 ) 02/19/2024 10:11 AM BEEF BREAKER Body Mass Index 30.54 02/19/2024 10:11 AM BEEF BREAKER Plan of Treatment Health Maintenance Due Date Last Done Comments Depression Screening 1945 Fall Risk Assessment 1945 Hepatitis C Screening 1945 Osteoporosis Screening-Bone Density Scan 1945 Hepatitis B Screening 09/19/1965 Pneumococcal vaccine 65+ (1 of 2 - PCV) 09/19/1966 03/13/2002 Zoster Vaccine (2 of 3) 04/23/2010 02/26/2010, 10/15 Well Visit 65+ 09/19/2012 DTaP/Tdap/Td Vaccine (3 - Td or Tdap) 04/04/2034 04/04/2024, 01/29/2007, 2000 Influenza Vaccine Completed 12/29/2023, , 11/30/2011 Insurance [employer] PPO Care Teams Dental Amalgam Processor Relationship Specialty Start Date End Date Mojgan Prather DO [facility] [place] [address] PCP - General Family Medicine 02/19/24
--- OUTSIDE RECORDS SUMMARY | 2024-06-21 14:39 | XMS_ITS | Patient Health Record ---
Author Organization [facility] Address [address] [place], [place] [id number] Care Team Providers Care Temper Mill Roller Name Role Phone Glenda Hawthorne Primary Care Provider Waylon Richmond Unavailable [phone] Allergies Allergen (clinical drug ingredient) Drug/Non Drug [...] Problem Status W/U Status Risk Notes Problem 12810751 Chronic allergic rhinitis (J30.9) Active confirmed Continue with fluticasone nasal spray and montelukast Problem 266469545 Mixed hyperlipidemia (E78.2) Active confirmed per pcp Problem 119263500 Mild intermittent asthma without complication (J45.20) Active confirmed Mild intermittent asthma, exacerbation, no excess use of rescue inhaler. PFT normal, continue with current therapy. Problem [id number] History of COVID-19 (Z86.16) Active confirmed Covid pneumonia in September 2019, since then received both doses of Covid vaccination. Plan Of Treatment No Information Insurance Providers Payer Name Payer Address Payer Phone Subscriber Number Group Number Insured Name Patient Relationship to Insured Coverage Start Date Coverage End Date Medicare Part B [address] [place] [address] [id number] Shawn Duran Self - patient is the insured [place] [address] [address] [place] [address] [id number] Shawn Duran Self - patient is the insured Medical (General) History Medical History History ICD Code Asthma Allergies/Hay fever HLP Bronchitis Covid 09/2019 Surgical History Surgery Date(Month/Year) hysterectomy gall bladder removal broken leg
--- OUTSIDE RECORDS SUMMARY | 2024-06-21 14:39 | XMS_ITS | Referral Summary ---
Author Organization [facility] [address] Address [address] [place] [address] Care Team Providers Care Lpn Or Medical Assistant Name Role Phone Mojgan Prather DO Primary Care Provider [phone] Encounters Date Type Department Care Team Description 04/22/2024 8:20 AM ACLS NURSE Office Visit [facility]) - [facility] ENT [address] [facility] 11th [place] [address] [place] [address] Afshin Castillo MD Meniere's disease of left ear (Primary Dx); Asymmetrical sensorineural hearing loss from Last 3 Months Allergies Active Allergy [...] 10/18/2023 Assessment & Plan (02/19/2024 1:04 PM ACLS NURSE): Mrs Duran presented for a follow up. [...] on file Legal Sex Female 11:46 AM ACLS NURSE Gender Identity Not on file Sexual Orientation Not on file Last Filed Vital Signs Vital Sign Reading Time Taken Comments Blood Pressure 135/80 02/19/2024 10:11 AM ACLS NURSE Pulse 97 02/19/2024 10:11 AM ACLS NURSE Temperature - - Respiratory Rate - - Oxygen Saturation - - Inhaled Oxygen Concentration - - Weight 68.6 kg (151 lb 3.2 oz) 04/22/2024 8:15 A M ACLS NURSE Height 149.9 cm (4' 11 ) 02/19/2024 10:11 AM ACLS NURSE Body Mass Index 30.54 02/19/2024 10:11 AM ACLS NURSE Plan of Treatment Not on file Insurance [employer] CHO[employer] PPO Care Teams Lpn Or Medical Assistant Relationship Specialty Start Date End Date Mojgan Prather DO [address] [facility] [address] [place] [address] PCP - General Family Medicine 02/19/24
== END 2024-06-21 14:38 | disposition home or self-care (01) ==
PROVIDERS: PCP Family Medicine; Visit Provider Nurse Practitioner
DX: M81.0 Age-related osteoporosis without current pathological fracture (principal); M85.88 Other specified disorders of bone density and structure, other site
CPT/HCPCS: 77080

== ENCOUNTER 2024-09-02 08:23 | Outpatient (CLI) | payer OTHER, SELFPAY ==
[2024-09-02 12:51] LABS: Alanine Aminotransferase 28 U/L (6-35); Albumin Level 4.2 g/dL (3.5-5.1); Alkaline Phosphatase 45 U/L (38-126); Anion Gap 6 mmol/L (4-12); Aspartate Amino Transferase 47 U/L (14-36); Bilirubin,Total 0.2 mg/dL (0.2-1.3); Blood Urea Nitrogen 22 mg/dL (7-17); Carbon Dioxide 27 mmol/L (22-30); Chloride 106 mmol/L (98-107); Cholesterol 192 mg/dL (0-200); Estimated Glomerular Filt Rate 55; Glucose 97 mg/dL (65-110); HDL Direct 64 mg/dL; Potassium 4.2 mmol/L (3.4-5.0); Sodium 139 mmol/L (137-145); Total Protein 6.6 g/dL (6.3-8.2); Triglycerides 122 mg/dL (<150)
[2024-09-02 13:02] LABS: LDL Cholesterol Direct 77 mg/dL
[2024-09-02 13:12] LABS: Vitamin D 25 Hydroxy 96.1 ng/mL
[2024-09-02 13:49] LABS: Hepatitis C Virus Antibody Negative (Negative)
== END 2024-09-02 08:24 | disposition home or self-care (01) ==
PROVIDERS: PCP Family Medicine; Visit Provider Nurse Practitioner
DX: E55.9 Vitamin D deficiency, unspecified (principal); E78.5 Hyperlipidemia, unspecified; Z11.59 Encounter for screening for other viral diseases
CPT/HCPCS: 36415; 80053; 80061; 82306; 86803

== ENCOUNTER 2024-12-28 09:26 | Emergency (ER) | payer OTHER, SELFPAY ==
[2024-12-28 09:40] VITALS: BP 143/72; PULSE 90; RESP 18; TEMP 36.4; O2SAT 100
--- NOTE | 2024-12-28 09:53 | ED.EAR ---
HPI - Ear Problem General Chief complaint: Ear Stated complaint: congestion/ear pain patient presents to the [facility] with complaints of increased nasal congestion, sinus pain, headaches, and left ear pain. Patient does have a long history of sinusitis, ear infections, Meniere's disease, and vertigo. Patient reports she has been using her daily maintenance medications but has had an increase in symptoms. Patient noted she will be traveling tomorrow and wanted to ensure that there was no ear infection. Denies fever, chills, body aches, current dizziness, drainage from left ear, nausea, vomiting, diarrhea. Related Data Home Medications ?Medication ?Instructions ?Recorded ?Confirmed ?Last Taken ?Type calcium carbonate (Alcalak) 168 mg PO TID 08/30/23 12/28/24 Unknown History fluticasone propionate 50 1 spray intranasal DAILY 08/30/23 12/28/24 Unknown History mcg/actuation nasal spray,suspension (Flonase Allergy Relief) omeprazole 20 mg capsule,delayed 20 mg PO DAILY 08/30/23 09/09/24 Unknown History release Betahistine 1 tablet PO DAILY 04/04/24 12/28/24 Unknown History meclizine 25 mg tablet 25 mg PO .prn PRN dizziness 04/04/24 12/28/24 Unknown History multivitamin (Daily Multi-Vitamin 1 tablet PO DAILY 04/04/24 12/28/24 Unknown History tablet) cholecalciferol (vitamin D3) 25 25 mcg PO .2XWEEKLY 09/02/24 12/28/24 Unknown History mcg (1,000 unit) tablet Allergies Allergy/AdvReac Type Severity Reaction Status Date / Time Penicillins Allergy Mild Rash Verified 12/28/24 09:39 Review of Systems Constitutional: Constitutional: Reports as per HPI, Denies chills, Denies fatigue, Denies fever(s) and Denies weakness Eyes: Eyes: Reports no additional eye complaints ENT: Reports as per HPI, Denies vertigo, Denies dizziness, Reports nasal congestion and Denies sore throat Comments: Left ear pain Cardiovascular: Cardiovascular: Reports as per HPI Respiratory: Respiratory: Reports no additional respiratory complaints, Reports chest congestion, Reports cough, Denies dyspnea and Denies wheezing Gastrointestinal: Gastrointestinal: Reports no additional gastrointestinal complaints Genitourinary: Genitourinary: Reports no additional female genitourinary complaints Musculoskeletal: Musculoskeletal: Reports as per HPI, Denies back pain, Denies myalgias and Denies arthralgias Integumentary/Breasts: Skin/Breast: Reports as per HPI, Denies erythema and Denies rash Neurologic: Reports as per HPI, Denies vertigo, Denies dizziness, Reports headache(s), Denies numbness and Denies weakness Psychiatric: Psychiatric: Reports no additional psychiatric complaints Endocrine: Endocrine: Reports no additional endocrine complaints Hematologic/Lymphatic: Hematologic/Lymphatic: Reports no additional hematologic/lymphatic complaints Allergic/Immunologic: Allergic/Immunologic: Reports as per HPI Comments: seasonal allergies, Meniere's disease, vertigo PMFSH Past Medical History Medical History Asthma Family History Family History Mother Diabetes mellitus Father Heart disease Social History Social History Smoking status: Never smoker Alcohol intake: never Substance use: never Substance use type: does not use Lack of Transportation: No Current Housing: I Have Housing Concerned About Future Housing: No Difficulty Paying Gas/Electric Bills: No Difficulty Paying for Meds: No Currently Unemployed: No Education: Master's Degree or Higher Difficulty w/ Childcare or Family Care: No Living arrangements: with family Occupation/Education: other Gender identity (if verbalized by the patient): Female Sexual Orientation (if Verbalized by the Patient): Straight or Heterosexual Exam Const: General: healthy appearing and no acute distress Nutritional Appearance: well nourished Orientation/consciousness: patient oriented x3 Limitations: no limitations HENMT: Head: normal to inspection Ears: external ears normal and TM's abnormal bilaterally ( moderate erythema with bulging and cloudy fluid in left TM) Face/Nose/Sinus: Normal external nose present, nares abnormal ( mild erythema and edema noted.) and no nasal discharge noted Face and sinus: normal facial exam and sinus tenderness Mouth: Yes Normal oral and palatal mucosa present, Yes lip normal and Yes moist mucous membranes Throat: posterior oropharynx normal Neck: Neck: normal visual inspection and no lymphadenopathy Resp: Effort & Inspection: normal respiratory effort Auscultation: clear to auscultation bilaterally Cardio: Rate: regular rate Rhythm: regular rhythm Skin: General skin exam: normal color Rashes: no rashes Wounds: no wounds Neuro: General: patient oriented x3 Cranial nerves: Yes Nystagmus not present Speech: normal speech Gait exam (Neuro): Normal gait present Extrem: General: normal to inspection and no pedal edema Psych: Mental Status: mental status grossly normal Affect: normal affect Attitude: cooperative Course Course Level of Care: Express Care Visit Vital Signs Vital signs: Vital Signs Temperature 97.6 F 12/28/24 09:40 Pulse Rate 90 12/28/24 09:40 Respiratory Rate 18 12/28/24 09:40 Blood Pressure 143/72 H 12/28/24 09:40 Pulse Oximetry 100 12/28/24 09:40 Oxygen Delivery Room Air 12/28/24 09:40 Temperature 97.6 F 12/28/24 09:40 Pulse Rate 90 12/28/24 09:40 Respiratory Rate 18 12/28/24 09:40 Blood Pressure 143/72 H 12/28/24 09:40 Pulse Oximetry 100 12/28/24 09:40 Oxygen Delivery Room Air 12/28/24 09:40 Medical Decision Making MDM Narrative Medical decision making narrative: The patient was evaluated by myself in the express care. History is obtained from patient who is an independent historian and physical exam was performed. Available medical records were reviewed at this time. Exam findings show no acute concerns or changes; patient is non-toxic appearing and is in no distress. Patient is appropriate for outpatient treatment and follow-up. I have evaluated and discussed social determinants of health with the patient that could potentially impact subsequent diagnosis and treatment plans. Differential diagnosis and treatment plan were discussed with the patient. Patient agrees with discussion and after shared medical decision making agrees with plan of care. All questions were answered to the patient's satisfaction. Differential Diagnosis Differential Diagnosis: AOM, sinusitis, serous otitis media, Medical Records Medical records reviewed: Yes I reviewed the external patient's medical records. Vital Signs Vital Signs: Vital Signs Temperature 97.6 F 12/28/24 09:40 Pulse Rate 90 12/28/24 09:40 Respiratory Rate 18 12/28/24 09:40 Blood Pressure 143/72 H 12/28/24 09:40 Pulse Oximetry 100 12/28/24 09:40 Oxygen Delivery Room Air 12/28/24 09:40 Temperature 97.6 F 12/28/24 09:40 Pulse Rate 90 12/28/24 09:40 Respiratory Rate 18 12/28/24 09:40 Blood Pressure 143/72 H 12/28/24 09:40 Pulse Oximetry 100 12/28/24 09:40 Oxygen Delivery Room Air 12/28/24 09:40 Discharge Plan Discharge Clinical Impression: Sinusitis Patient Disposition: Home Condition: Stable Instructions: Antibiotic Form, Sinusitis (ED), Ear Infection (ED) Additional Instructions: Take the antibiotics as directed for the entire course. Do not miss any doses. What you are taking antibiotics and is recommended to take a probiotic or have yogurt daily to return the good gut bacteria to your system. This can also help with acute diarrhea while taking antibiotics. A can take 24-48 hours for the antibiotics the cake in to relieve your symptoms continue to take these medications to help with various symptoms: Tylenol or Motrin for pain, headache, or fever Flonase/fluticasone or Nasacort/triamcinolone nasal spray- helps with congestion and nasal drainage. Sudafed/pseudoephedrine helps with sinus pain and congestion. Caution with high blood pressure. Use a humidifier or vaporizer at night. Drink plenty of water. 8-10 glasses per day. Mucinex/guaifenesinas directed and be sure to take with 8oz of water. Warm compresses over the forehead and cheeks to promote sinus drainage. Return to urgent care or go to the ER for new or worsening symptoms. Follow up with Primary provider if not improved after 1 week. Patient Language: Malay Prescriptions: New azithromycin 250 mg tablet See Rx Instructions .ROUTE .COMPLEX Qty: 6 0RF Rx Instructions: For 250 mg dose pack: take 500 mg today (day 1), then 250 mg for 4 days (days 2-5) prednisone 20 mg tablet 60 mg PO DAILY Qty: 15 0RF No Action omeprazole 20 mg capsule,delayed release(DR/EC) 20 mg PO DAILY Alcalak 168 mg calcium (420 mg) tablet,chewable 168 mg PO TID fluticasone propionate [Flonase Allergy Relief] 50 mcg/actuation spray,suspension 1 spray intranasal DAILY Rx Instructions: administer into each nostril Betahistine 8 mg tablet 1 tablet PO DAILY meclizine 25 mg tablet 25 mg PO .prn PRN (Reason: dizziness) multivitamin [Daily Multi-Vitamin] Tablet 1 tablet PO DAILY albuterol sulfate [Ventolin HFA] 90 mcg/actuation HFA aerosol inhaler 1 puff inhalation Q4H PRN (Reason: shortness of breath or wheezing) Qty: 8.5 1RF rosuvastatin 20 mg tablet See Rx Instructions .ROUTE .COMPLEX Qty: 90 1RF Dose Instruction: Take 1 tablet by mouth once daily Rx Instructions: Take 1 tablet by mouth once daily cholecalciferol (vitamin D3) 25 mcg (1,000 unit) tablet 25 mcg PO .2XWEEKLY budesonide-formoterol [Breyna] 160-4.5 mcg/actuation HFA aerosol inhaler 2 inh inhalation BID Qty: 10.2 5RF montelukast 10 mg tablet 10 mg PO DAILY Qty: 90 1RF alendronate 70 mg tablet 70 mg PO WEEKLY Qty: 12 1RF Follow-up/Referrals: Mojgan Prather DO [Primary Care Provider, [facility]] Time of Disposition: 09:58
== END 2024-12-28 10:00 | disposition home or self-care (01) ==
PROVIDERS: Emergency Provider Nurse Practitioner Family; PCP Family Medicine
DX: J32.9 Chronic sinusitis, unspecified (principal); J45.909 Unspecified asthma, uncomplicated
CPT/HCPCS: 99213; G0463

== ENCOUNTER 2025-01-07 09:40 | Outpatient (CLI) | payer OTHER, SELFPAY ==
--- OUTSIDE RECORDS SUMMARY | 2025-01-07 10:41 | XMS_ITS | Clinical Summary ---
Author [place] [facility] [facility] [address] Address [address] [place] [id number] Care Team Providers Care Inside [employer] Name Role Phone Mojgan Prather DO Primary Care Provider [phone] Allergies Active Allergy Reactions Criticality Noted Date [...] Take 1 tablet by mouth daily Active betahistine Take 1 capsule (8 mg total) by mouth 2 (two) times a day Active alendronate (FOSAMAX) 70 mg tablet Take 1 tablet (70 mg total) by mouth once a week 5 Active Hospital, Clinic, or Other Facility Administered Medication Ordered Dose Route Frequency Start Date End Date Status onabotulinumtoxin A (BOTOX) injection 400 UnitsIndications:Kash lt onset primary focal and segmental dystonia 400 Units IM Once for Clinic-Administer ed Medication 03/19/2025 03/18/2026 Active Active Problems Problem Noted Date Diagnosed Date Memory loss 10/09/2024 Chronic allergic rhinitis 10/18/2023 History of COVID-19 10/18/2023 Mild intermittent asthma without complication Mixed hyperlipidemia 10/18/2023 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 Shawn Duran is a 79 y.o. 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 She is an appropriate candidate for botulinum injections. The risks (including but not limited to: bruising, hematoma, weakness, dysphagia, infection, and injection site pain, benefits, alternatives to chemodenervation were explained. A signed consent was obtained. The consenting adult understands that all general neurological issues are to be managed by the referring neurologist or physician. Botulinum toxin injected as follows without EMG Guidance (0 Units wasted): Botox 100 U injected into the following muscles using a 1 cc dilution: 10U Levator Scapulae (left) 10U Splenius Capitis (left) 10U Sternocleidomastoid (left) 10U Splenius Capitis (right) 10U Sternocleidomastoid (right) 30U Trapezius (left) 20U Trapezius (right) Marry Marte MD Assessment & Plan (10/09/2024 10:43 AM CDT): Mrs Duran presented for a follow up. She was doing well overall. She continued to have head bobbing and slight neck pain with stress in addition to jerking and tremor in the arms. This did not affect ADLs and the pain was not sufficient to make her take anticholinergic medications that may affect her memory. Levodopa unfortunately caused intolerable nausea. We will not start a medication at this time. She will call for botulinum toxin treatment should the neck worsen. She noted worsening of her baseline memory trouble especially names. We will check reversible causes of memory problems and get an MRI. Should this be normal or point to a primary memory problem, I would [place] [facility] [place]ations Continue to monitor movement and if it becomes bothersome, please let us know Check B12, folate and TSH. Deferred HIV and RPR due to low risk factors. Check MRI brain using dementia protocol. Assessment & Plan (02/19/2024 1:04 PM [employer]NEY [employer]): Mrs Duran presented for a follow up. She was doing well overall. She continued to have head bobbing and slight neck pain with stress. She worked hard to manage her stress and felt she was doing well. She referred to the movement and pain as mild. 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 (Primary Dx) 11/08/2024 Orders Only [facility] Movement [facility] [address] [facility] [address] [place] [address] Marry Marte MD Memory loss (Primary Dx) 11/07/2024 4:40 PM CDT - 11/07/2024 11:59 PM CDT Hospital Encounter [facility] [address] [place] [id number] Memory loss Discharge Disposition: Discharge to home or self care 10/09/2024 12:00 PM CDT Lab [facility] [address] [place] [address] Memory loss 10/09/2024 10:00 AM CDT Office Visit [facility] Movement Disorders [address] [facility] Medicine [address] [place] [address] Marry Marte MD Memory loss (Primary Dx); Cervical dystonia; 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 10/09/2024 Results Follow[facility] [address] [place] [address] Marry Marte MD Thyroid Function [place] from Last 3 Months Surgical History Surgery [...] on file Legal Sex Female 11:46 AM [employer] Gender Identity Not on file Sexual Orientation Not on file Obstetrics History Last Filed Vital Signs Vital Sign Reading Time Taken Comments Blood Pressure 145/77 12/04/2024 1:50 PM CDT Pulse 76 12/04/2024 1:50 PM CDT Temperature - - Respiratory Rate - - Oxygen Saturation - - Inhaled Oxygen Concentration - - Weight 68.8 kg (151 lb 9.6 oz) 12/04/2024 1:50 P M CDT Height 149.9 cm (4' 11) 12/04/2024 1:50 PM CDT Body Mass Index 30.62 12/04/2024 1:50 PM CDT Plan of Treatment Health Maintenance Due Date Last Done Comments Depression Screening 1945 Fall Risk Assessment 1945 Hepatitis C Screening 1945 Osteoporosis Screening-Bone Density Scan 1945 Hepatitis B Screening 09/19/1965 Pneumococcal vaccine 65+ (1 of 2 - PCV) 09/19/1966 03/13/2002 Zoster Vaccine (2 of 3) 04/23/2010 02/26/2010, 10/15 Well Visit 65+ 09/19/2012 Influenza Vaccine (#1) 2024 , 11/09/2013, 11/30/2011 DTaP/Tdap/Td Vaccine (3 - Td or Tdap) 04/04/2034 04/04/2024, 01/29/2007, 2000 Procedures Procedure Name Priority Date/Time Associated Diagnosis Comments MRI BRAIN AND VOLUMETRIC W WO CONTRAST Schedule Routine, Read Routine (OP Routine) 11/07/2024 5:52 PM CDT Memory loss THYROID FUNCTION CASCADE Routine 10/09/2024 11:06 AM CDT Memory loss from Last 3 Months Results * MRI Brain and Volumetric W WO Contrast (11/07/2024 5:52 PM CDT) Anatomical Region Laterality Modality Head and Neck N/A Magnetic Resonan ce 11/08/2024 10:1 2 AM CDT Impressions 11/08/2024 1:01 PM CDT No acute intracranial abnormality or significant cortical volume loss for age-matched controls. Small cystic T2 hyperintensity within the right temporal lobe without enhancement or diffusion restriction, likely represents a prominent perivascular space. Dictated by: Edy Newman MD The radiology attending physician has personally reviewed this study, and had reviewed and/or edited this written report and agrees with it. Electronically signed by: Leodan Cormier M.D. Narrative 11/08/2024 1:01 PM CDT EXAMINATION: Magnetic resonance imaging (MRI) of the brain and brainstem without and with contrast HISTORY: Memory loss, dystonia TECHNIQUE: Multiplanar multi-weighted MRI of the brain and brainstem was performed without and with intravenous contrast using a protocol specific to assess patients with memory complaints. T1-weighted sagittal MPRage images of the brain were postprocessed on [employer] to generate segmented brain volumes using commercial software. Results were compared to 10th and 90th percentiles of healthy age-/gender-matched population. Graphs were sent to [employer] PACS. The protocol specifically includes FLAIR to assess for potential infarcts and white matter lesions associated with vascular cognitive impairment and with susceptibility sensitive sequences for detection of cerebral microhemorrhages. Contrast information: 12 mL Gadoterate Meglumine IV COMPARISON: None Available. FINDINGS: T2 hyperintensity within the right temporal lobe without significant surrounding FLAIR hyperintensity or enhancement or restriction likely represents a prominent perivascular space, measuring 5.5 mm. The scalp and calvarium are normal. The superior sagittal sinus demonstrates normal venous flow. The corpus callosum is normal in shape and signal intensity. The posterior fossa is unremarkable. The pituitary and sella are normal. The brainstem and craniocervical junction are unremarkable. Diffusion weighted images reveal no hyperintensities to suggest acute cerebral infarction. The susceptibility weighted sequences reveal no evidence of acute or chronic hemorrhage. The ventricles are normal in size and position without evidence of hydrocephalus. The paranasal sinuses are normal. The visualized portions of the mastoids are unremarkable. The orbits appear normal. Normal flow voids are demonstrated in the carotid arteries and basilar artery. There is no abnormal contrast enhancement. QUANTITATIVE ASSESSMENT: Assessment of hippocampal volumes: Quantitative assessment was performed using [employer] and is reported. Total bowie matter volumes are within normal limits. The hippocampi are within normal limits. There is minimally decreased but symmetric volume of the left putamen. Minimally decreased volume of the midbrain. QUALITATIVE ASSESSMENT: Small infarcts (< 15 mm): None. Infarcts (>15 mm): No. White matter hyperintensities (Fazekas grade): Mild/Fazekas 1: Multiple punctate lesions. Prior cerebral microhemorrhages: No prior exam is available to allow for adequate comparison. New/incident cerebral microhemorrhages: There are no new MCH. Total cerebral microhemorrhages: There are no MCH. Prior siderosis: no prior exam available for adequate comparison. New/incident siderosis: None. Procedure Note Leodan Cormier MD - 11/08/2024 EXAMINATION: Magnetic resonance imaging (MRI) of the brain and brainstem without and with contrast HISTORY: Memory loss, dystonia TECHNIQUE: Multiplanar multi-weighted MRI of the brain and brainstem was performed without and with intravenous contrast using a protocol specific to assess patients with memory complaints. T1-weighted sagittal MPRage images of the brain were postprocessed on [employer] to generate segmented brain volumes using commercial software. Results were compared to 10th and 90th percentiles of healthy age-/gender-matched population. Graphs were sent to [employer] PACS. The protocol specifically includes FLAIR to assess for potential infarcts and white matter lesions associated with vascular cognitive impairment and with susceptibility sensitive sequences for detection of cerebral microhemorrhages. Contrast information: 12 mL Gadoterate Meglumine IV COMPARISON: None Available. FINDINGS: T2 hyperintensity within the right temporal lobe without significant surrounding FLAIR hyperintensity or enhancement or restriction likely represents a prominent perivascular space, measuring 5.5 mm. The scalp and calvarium are normal. The superior sagittal sinus demonstrates normal venous flow. The corpus callosum is normal in shape and signal intensity. The posterior fossa is unremarkable. The pituitary and sella are normal. The brainstem and craniocervical junction are unremarkable. Diffusion weighted images reveal no hyperintensities to suggest acute cerebral infarction. The susceptibility weighted sequences reveal no evidence of acute or chronic hemorrhage. The ventricles are normal in size and position without evidence of hydrocephalus. The paranasal sinuses are normal. The visualized portions of the mastoids are unremarkable. The orbits appear normal. Normal flow voids are demonstrated in the carotid arteries and basilar artery. There is no abnormal contrast enhancement. QUANTITATIVE ASSESSMENT: Assessment of hippocampal volumes: Quantitative assessment was performed using [employer] and is reported. Total bowie matter volumes are within normal limits. The hippocampi are within normal limits. There is minimally decreased but symmetric volume of the left putamen. Minimally decreased volume of the midbrain. QUALITATIVE ASSESSMENT: Small infarcts (< 15 mm): None. Infarcts (>15 mm): No. White matter hyperintensities (Fazekas grade): Mild/Fazekas 1: Multiple punctate lesions. Prior cerebral microhemorrhages: No prior exam is available to allow for adequate comparison. New/incident cerebral microhemorrhages: There are no new MCH. Total cerebral microhemorrhages: There are no MCH. Prior siderosis: no prior exam available for adequate comparison. New/incident siderosis: None. IMPRESSION: No acute intracranial abnormality or significant cortical volume loss for age-matched controls. Small cystic T2 hyperintensity within the right temporal lobe without enhancement or diffusion restriction, likely represents a prominent perivascular space. Dictated by: Edy Newman MD The radiology attending physician has personally reviewed this study, and had reviewed and/or edited this written report and agrees with it. Electronically signed by: Leodan Cormier M.D. us Marry Marte MD IMG MRI PROCEDURES Final Result * Thyroid Function [place] (10/09/2024 11:06 AM CDT) TSH 2.72 0.30 - 4.20 mcIUnit/mL Blood 10/09/2024 11:0 6 AM CDT 10/09/2024 11:22 AM CDT Marry Marte MD LAB BLOOD ORDERABLES Final Resul t [facility] [place] [address] from Last 3 Months Insurance [employer] P[employer] Care Teams Inside [employer] Relationship Specialty Start Date End Date Mojgan Prather DO PCP - General Family Medicine 02/19/24
--- OUTSIDE RECORDS SUMMARY | 2025-01-07 10:41 | XMS_ITS | Encounter Summary ---
Author Organization [facility] Address [address] [place] [address] Phone Care Team Providers Care Service Correspondent Name Role Phone Mojgan Prather DO Primary Care Provider [phone] Encounter Details Date Type Department Care Team (Late st Contact Info) Description 01/06/2025 Documentation [facility] Medicine Movement Disorders [facility] [address] [place] [id number] Analilia Metcalf CMA Social History Tobacco Use Types Packs/Day Years [...] on file 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
[2025-01-07 12:58] LABS: Hematocrit 40.6 % (37.0-47.0); Hemoglobin 13.2 g/dL (12.0-15.0); Mean Corpuscular HGB Conc 32.5 g/dl (32-36); Mean Corpuscular Hemoglobin 30.7 pg (26-34); Mean Corpuscular Volume 94.4 fl (80-100); Platelet Count Result 240 k/mm3 (150-375); Red Blood Count 4.30 M/mm3 (4.2-5.4); White Blood Count 6.8 K/mm3 (4.5-10.0)
[2025-01-07 13:06] LABS: Alanine Aminotransferase 28 U/L (6-35); Albumin Level 3.9 g/dL (3.5-5.1); Alkaline Phosphatase 53 U/L (38-126); Anion Gap 5 mmol/L (4-12); Aspartate Amino Transferase 46 U/L (14-36); Bilirubin,Total 0.4 mg/dL (0.2-1.3); Blood Urea Nitrogen 19 mg/dL (7-17); Calcium 8.9 mg/dL (8.4-10.2); Carbon Dioxide 27 mmol/L (22-30); Chloride 106 mmol/L (98-107); Cholesterol 178 mg/dL (0-200); Estimated Glomerular Filt Rate 56; Glucose 89 mg/dL (65-110); HDL Direct 60 mg/dL; Potassium 4.4 mmol/L (3.4-5.0); Sodium 138 mmol/L (137-145); Total Protein 6.4 g/dL (6.3-8.2); Triglycerides 120 mg/dL (<150)
[2025-01-07 13:41] LABS: Thyroid Stimulating Hormone 2.560 uIU/mL (0.465-4.680)
[2025-01-07 14:11] LABS: Vitamin B12 959.0 pg/mL (239-931)
[2025-01-11 08:09] LABS: 1,25-Dihydroxy, Vitamin D-2 <10 pg/mL (.); 1,25-Dihydroxy, Vitamin D-3 27 pg/mL (.); Total 1,25-Dihydroxy,Vitamin D 31 pg/mL (.)
== END 2025-01-07 09:41 | disposition home or self-care (01) ==
PROVIDERS: Nurse Practitioner; PCP Family Medicine
DX: T45.2X1A Poisoning by vitamins, accidental (unintentional), initial encounter (principal); R41.3 Other amnesia; E78.5 Hyperlipidemia, unspecified; E55.9 Vitamin D deficiency, unspecified; Z12.31 Encounter for screening mammogram for malignant neoplasm of breast; Z79.899 Other long term (current) drug therapy
CPT/HCPCS: 36415; 80053; 80061; 82306; 82607; 82652; 82746; 84443; 85027

== ENCOUNTER 2025-02-17 12:21 | Outpatient (CLI) | payer OTHER, SELFPAY ==
--- NOTE | ~2025-02-17 | MM_ITS ---
EXAMINATION: MM screening [facility] BI w oli HISTORY: Screening. TECHNIQUE: Craniocaudal and mediolateral oblique 3-D tomosynthesis images were obtained and synthetic 2-D images were generated. CAD analysis was submitted and interpreted. COMPARISON: None available. BREAST PARENCHYMAL COMPOSITION: Dense: The breasts are heterogeneously dense FINDINGS: There is a biopsy marker in the right. No suspicious masses are seen. There are no suspicious calcifications. No unexplained architectural distortion is seen. There are no skin or nipple abnormalities identified. There is no adenopathy seen on the images submitted. IMPRESSION: No mammographic or sonographic evidence to suggest malignancy is seen. The patient may return to screening mammography as per ACR guidelines. BI-RADS 1 - Negative. Reviewed, dictated and finalized at location B. [employer] IMPRESSION: No mammographic or sonographic evidence to suggest malignancy is seen. The alex ent may return to screening mammography as per ACR guidelines. BI-RADS 1 - Negative.
== END 2025-02-17 12:22 | disposition home or self-care (01) ==
LOC: MICIMG 12:21
PROVIDERS: PCP Family Medicine; Visit Provider Family Medicine
DX: Z12.31 Encounter for screening mammogram for malignant neoplasm of breast (principal)
CPT/HCPCS: 77063; 77067